=== PATIENT | female | born 1940 | race Caucasian/White ===

== ENCOUNTER 2016-06-19 10:31 | Outpatient (CLI) | payer OTHER, MEDICARE | END 2016-06-19 10:32 | disposition home or self-care (01) | DX: M25.512 Pain in left shoulder (principal) ==

== ENCOUNTER 2017-06-01 16:30 | Outpatient (CLI) | payer MEDICARE, OTHER ==
--- NOTE | 2017-06-03 15:08 | MRI Report ---
EXAM: LEFT SHOULDER MRI WITHOUT CONTRAST EXAM DATE: 06/01/2017 04:43 PM. CLINICAL HISTORY: Left shoulder pain and limited range of motion for years. COMPARISON: None. TECHNIQUE: Multiplanar, multisequence T1-weighted and fluid-sensitive sequences of the shoulder witho ut contrast. Other: None. FINDINGS: Acromioclavicular Region: The acromion is type I. The acromioclavicular joint is unremarkable. The co racoacromial and coracoclavicular ligaments are intact. Trace amount of fluid at the subacromial/subd eltoid bursa. Glenohumeral Region: No subluxation. No effusion or loose bodies. The articular cartilage is unremark able. The glenohumeral ligaments and joint capsule are unremarkable. Bone Marrow: No fracture, marrow edema or bone lesions. Labrum: The labrum is unremarkable on this nonarthrographic study. Musculature/Rotator Cuff: Mild supraspinatus tendinosis. Infraspinatus, teres minor, and subscapulari s tendons are unremarkable. No rotator cuff tear. No edema or fatty atrophy. Biceps Tendon: The long head of the biceps tendon and biceps hayden are intact. Other: The subcutaneous tissues are unremarkable. IMPRESSION: 1. Mild supraspinatus tendinosis. No rotator cuff tear. 2. Trace amount of fluid at the subacromial/subdeltoid bursa. [facility] MUSCULOSKELETAL RADIOLOGY SECTION Referring Provider Line: [phone] SITE ID: [id number]
== END 2017-06-01 16:31 | disposition home or self-care (01) ==
LOC: DI 16:30
PROVIDERS: ATTEND Registered Nurse
DX: M25.512 Pain in left shoulder (principal); R29.898 Other symptoms and signs involving the musculoskeletal system

== ENCOUNTER 2017-09-12 13:20 | Outpatient (CLI) | payer MEDICARE, OTHER ==
--- NOTE | 2017-09-16 16:11 | DEXA Report ---
DEXA: 09/12/2017 CLINICAL INDICATION: Postmenopausal. TECHNIQUE: Dual energy x-ray absorptiometry (DXA) was performed on a [employer] system. Regions measured are the AP spine, femoral neck, and, if needed, forearm. COMPARISON: None. In accordance with the International Society for Clinical Densitometry (ISCD) guidelines, data from previous exams may be reanalyzed using current recommendations and techniques. This is done to allow a more accurate basis for comparison with the current study. FINDINGS Data for the lumbar spine is as follows: REGION BMD (g/cm/cm) T-SCORE Z-SCORE L1 0.798 -2.8 -1.4 L2 0.774 -3.6 -2.2 L3 0.918 -2.4 -0.9 L4 0.865 -2.8 -1.4 L1-L4 0.843 -2.8 -1.4 NOTE: All evaluable vertebrae are used for classification. Data for the hip is as follows: REGION BMD (g/cm/cm) T-SCORE Z-SCORE Neck 0.858 -1.3 0.4 TOTAL 0.885 -1.0 0.6 NOTE: The femoral neck or total proximal femur, whichever is lowest, is used for classification. IMPRESSION WHO CLASSIFICATION BASED ON THE INTERNATIONAL REFERENCE STANDARD IS OSTEOPOROSIS. FRACTURE RISK IS HIGH. RECOMMENDATION: Patients with diagnosis of osteoporosis or osteopenia should have regular bone mineral density assessment. For those eligible for Medicare, routine testing is allowed once every 2 years. Testing frequency can be increased for patients who have rapidly progressing disease or for those who are receiving medical therapy to restore bone mass. COMMENT: World Health Organization (WHO) definitions for osteoporosis and osteopenia: NORMAL BMD: T-score at 1.0 or higher, fracture risk is low. OSTEOPENIA BMD: T-score between 1.0 and -2.5, fracture risk is increased. OSTEOPOROSIS BMD: T-score at 2.5 or lower, fracture risk high. National Osteoporosis Foundation recommends: 1. Obtain adequate dietary calcium (at least 1200 mg per day) and vitamin D (400 -800 international units per day). 2. Participate, as appropriate, in regular weightbearing and muscle- strengthening exercise. 3. Avoid tobacco use and reduce alcohol and caffeine intake. 4. For more detailed information see the website at www.NOF.org. TD: 09/12/2017 17:15 MTDD
== END 2017-09-12 13:21 | disposition home or self-care (01) ==
LOC: DI 13:20
PROVIDERS: ATTEND Registered Nurse
DX: Z13.820 Encounter for screening for osteoporosis (principal); M85.89 Other specified disorders of bone density and structure, multiple sites; N95.8 Other specified menopausal and perimenopausal disorders; R06.2 Wheezing; J40 Bronchitis, not specified as acute or chronic
CPT/HCPCS: 71046; 77080

== ENCOUNTER 2017-09-12 13:21 | Outpatient (CLI) | payer MEDICARE, OTHER ==
--- NOTE | 2017-09-12 17:13 | XRAY Report ---
TWO VIEW CHEST: 09/12/2017 CLINICAL INDICATION: Bronchitis, wheezing. FINDINGS: Frontal and lateral views of the chest demonstrate a normal cardiac silhouette. The lungs are hyperinflated, but clear. Postoperative changes are seen in the left axilla. No focal consolidation, effusion, or pneumothorax is present. IMPRESSION: HYPERINFLATION, SUGGESTIVE OF COPD. NO EVIDENCE OF ACUTE CARDIOPULMONARY DISEASE. TD: 09/12/2017 17:12
== END 2017-09-12 13:22 | disposition home or self-care (01) ==
LOC: DI 13:21
PROVIDERS: ATTEND Nurse Practitioner Family
DX: J40 Bronchitis, not specified as acute or chronic (principal); R06.2 Wheezing
CPT/HCPCS: 71046

== ENCOUNTER 2017-09-12 13:21 | Outpatient (CLI) | payer MEDICARE, OTHER ==
--- NOTE | 2017-09-13 14:03 | Mammography Report ---
DIGITAL SCREENING MAMMOGRAM: 09/12/2017 CLINICAL INDICATION: A 77-year-old with history of left breast cancer, status post lumpectomy and chemoradiation, for screening. COMPARISON: 12/2010, 11/2008. TECHNIQUE: Routine CC and MLO projections were obtained of the breasts. FINDINGS: The breasts again demonstrate scattered fibroglandular densities bilaterally. Postoperative and posttreatment changes in the left breast are stable. No suspicious masses, clustered microcalcifications, or regions of architectural distortion are identified. Punctate, typically benign calcifications are present. IMPRESSION: BENIGN FINDINGS. RECOMMENDATION: Routine annual screening unless otherwise clinically indicated. BIRADS CATEGORY 2 BENIGN FINDINGS. STANDARD QUALIFYING STATEMENTS: 1. This examination was reviewed with the aid of Computer-Aided Detection (CAD). 2. A negative or benign imaging report should not delay biopsy if clinically suspicious findings are present. Consider surgical consultation if warranted. More than 5% of cancers are not identified by imaging. 3. Dense breasts may obscure an underlying neoplasm. TD: 09/13/2017 14:02
== END 2017-09-12 13:22 | disposition home or self-care (01) ==
LOC: DI 13:21
PROVIDERS: ATTEND Registered Nurse
DX: Z12.31 Encounter for screening mammogram for malignant neoplasm of breast (principal); Z85.3 Personal history of malignant neoplasm of breast
CPT/HCPCS: 77067

== ENCOUNTER 2019-05-27 12:57 | Outpatient (CLI) | payer MEDICARE, OTHER ==
--- NOTE | 2019-05-28 06:38 | XRAY Report ---
Reason: PAIN OF LT ANKLE JOINT Procedure Date: 05/27/2019 Accession Number: [id number] / [id number] Procedure: XRS - Ankle 3 View LT CPT Code: Final Report FULL RESULT: EXAM: LEFT ANKLE RADIOGRAPHY EXAM DATE: 05/27/2019 01:15 PM. CLINICAL HISTORY: PAIN OF LT ANKLE JOINT. COMPARISON: FOOT 3 VIEW LT 05/27/2019 1:12 PM. TECHNIQUE: 3 views. FINDINGS: Bones: Small ossicle of uncertain age at the lateral aspect of the hindfoot, distal to the lateral malleolus. No other acute fracture seen. Joints: No dislocation seen. Ankle mortise appears intact. No joint effusion identified. Soft Tissues: Mild soft tissue swelling. IMPRESSION: 1. Ossicle of uncertain age distal to the tip of the lateral malleolus, seen on the mortise view. This could be a small avulsion from the lateral aspect of the talus or calcaneus. [facility]
--- NOTE | 2019-05-28 06:40 | XRAY Report ---
Reason: PAIN OF LT ANKLE JOINT Procedure Date: 05/27/2019 Accession Number: [id number] / [id number] Procedure: XRS - Foot 3 View LT CPT Code: Final Report FULL RESULT: EXAM: LEFT FOOT RADIOGRAPHY EXAM DATE: 05/27/2019 01:15 PM. CLINICAL HISTORY: Pain after injury. COMPARISON: None. TECHNIQUE: 3 views. FINDINGS: Bones: Bunion deformity. No acute fracture seen. Joints: No dislocation seen. Mild degenerative joint disease in the first MTP joint and in the interphalangeal joints. Soft Tissues: Mild soft tissue swelling. IMPRESSION: 1. No acute fracture or dislocation seen. 2. Bunion deformity and mild degenerative changes. [facility]
== END 2019-05-27 12:58 | disposition home or self-care (01) ==
LOC: DI.S 12:57
PROVIDERS: ATTEND Registered Nurse
DX: M21.612 Bunion of left foot (principal); M19.072 Primary osteoarthritis, left ankle and foot; M85.872 Other specified disorders of bone density and structure, left ankle and foot

== ENCOUNTER 2019-10-30 11:08 | Outpatient (CLI) | payer MEDICARE, OTHER ==
--- NOTE | 2019-11-03 09:43 | Mammography Report ---
BILATERAL DIGITAL SCREENING MAMMOGRAM 3D/2D: 10/30/2019 CLINICAL: Routine screening. Personal history of left breast cancer. Comparison is made to exams dated: 09/12/2017 mammogram, 12/19/2010 mammogram, and 11/24/2008 mammogram - [facility]. The tissue of both breasts is heterogeneously dense. This may lower t he sensitivity of mammography. There are benign vascular calcifications in both breasts. There also are benign post operative findi ngs in the left breast. No significant masses, calcifications, or other findings are seen in either breast. There has been no significant interval change. IMPRESSION: There is no mammographic evidence of malignancy. A 1 year screening mammogram is recommended. This exam was interpreted at Station ID: [id number]. NOTE: For mammograms, a report in lay terms will be sent to the patient. Approximately 15% of breast malignancies will not be visualized mammographically. In the management of a palpable breast mass, a negative mammogram must not discourage biopsy of a clinically suspicious lesion. Electronically Signed By: Juanito shaffer/haja:11/02/2019 16:08:41 ACR BI-RADS Category 2: Benign Finding(s) 3342F PARENCHYMAL PATTERN: (D) - The breast(s) demonstrate(s) heterogeneously dense fibroglandular jasson larsen. BI-RADS CATEGORY: (2) - 2 RECOMMENDATION: (ANNUAL) - Recommend routine annual screening mammography. [id number] 1 year screening LATERALITY: (B)
== END 2019-10-30 11:09 | disposition home or self-care (01) ==
LOC: DI 11:08
PROVIDERS: ATTEND Physician Assistant
DX: Z12.31 Encounter for screening mammogram for malignant neoplasm of breast (principal); Z85.3 Personal history of malignant neoplasm of breast
CPT/HCPCS: 77063; 77067

== ENCOUNTER 2020-08-25 22:03 | Outpatient (CLI) | payer MEDICARE, OTHER | END 2020-08-25 22:04 | disposition critical access hospital (66) | LOC: EMS 22:03 | DX: R06.02 Shortness of breath (principal); M62.830 Muscle spasm of back | CPT/HCPCS: A0425; A0427 ==

== ENCOUNTER 2020-08-25 22:43 | Inpatient (IN) | payer MEDICARE, OTHER ==
[2020-08-25] MEDS ORDERED: SODIUM CHLORIDE 0.9% 2,218.08 ML IV STA (23:19)
[2020-08-25] MEDS ORDERED: ACETAMINOPHEN 500 MG TABLET PO STA (23:20)
--- NOTE | 2020-08-25 23:23 | ED Physician Documentation ---
History of Present Illness - Stated complaint Stated Complaint: SOA/BACK PAIN - Chief complaint Chief Complaint: Fever - History obtained from History obtained from: Patient, EMS - Additonal information Additional information: Patient is brought to the emergency department by EMS for chief complaint of shortness of breath, fever, myalgias, and generally not feeling well. Patient is not able to give an entirely clear history, due to having received 200 mcg of fentanyl in route by EMS. EMS reports a wrist surgery that was done "in August" but this does not appear likely, given the lack of fresh scars/incisions on the patient's upper extremities. The patient is not sure when her wrist surgery was. She states she has been coughing a little and has a history of asthma, but has not had to use her inhalers more than usual recently. She denies dysuria. She has not measured temperature at home, though she was found to be febrile in route and upon arrival here. Patient denies any nausea or vomiting. She has a history of lymphedema in her left arm since breast cancer treatment, And does not think this is any worse than usual. She reports that she normally has some redness of her arm and chest, though once again the accuracy of this history is not clear, secondary to some confusion that has resulted since the patient receiving fentanyl. Patient denies any other specific complaints at this time. Review of Systems Ten Systems: 10 systems reviewed and negative Constitutional: reports: Fever, Chills, Myalgias, Fatigue Eyes: reports: Reviewed and negative Ears: reports: Reviewed and negative Nose: reports: Reviewed and negative Throat: reports: Reviewed and negative Cardiac: reports: Reviewed and negative Respiratory: reports: Dyspnea, Cough (mild) GI: reports: Reviewed and negative. denies: Nausea, Vomiting : reports: Reviewed and negative. denies: Dysuria Skin: reports: Reviewed and negative Musculoskeletal: reports: Reviewed and negative Neurologic: reports: Reviewed and negative Psychiatric: reports: Reviewed and negative Endocrine: reports: Reviewed and negative Immunocompromised: reports: Reviewed and negative PD PAST MEDICAL HISTORY - Past Medical History Cardiovascular: High cholesterol GI: GERD Psych: Depression Musculoskeletal: Osteoarthritis, Other - Past Surgical History Past Surgical History: Yes General: Hiatal hernia repair Ortho: Hip replacement - Present Medications Home Medications: Ambulatory Orders Medication Instructions Recorded Confirmed Albuterol [Ventolin Hfa] 2 puffs INH Q4H PRN #1 inhaler 03/03/13 08/25/20 Carbidopa/Levodopa 25/100 [Sinemet 1 each PO QID PRN 03/03/13 08/25/20 25 mg/100 mg] Citalopram [CeleXA] 40 mg PO DAILY 03/03/13 08/25/20 Gabapentin [Neurontin] 100 mg PO BID 03/03/13 08/25/20 HYDROcodone/ACET 10/325 [Millen 10 1 each PO Q4-6H PRN 03/03/13 08/25/20 mg/325 mg] Lovastatin [Altoprev] 20 mg PO DAILY 03/03/13 03/03/13 Omeprazole [PriLOSEC] 20 mg PO DAILY 03/03/13 08/25/20 Ropinirole HCl 1 mg PO TID 03/03/13 08/25/20 predniSONE [Deltasone] 40 mg PO DAILY 5 Days tablet 03/03/13 Azithromycin [Zithromax] 250 mg PO DAILY #6 tablet 12/25/14 guaiFENesin/CODEINE [Robitussin AC] 10 ml PO Q6H PRN 08/25/20 - Allergies Allergies/Adverse Reactions: Allergies Allergy/AdvReac Type Severity Reaction Status Date / Time Penicillins Allergy Mild itchng Verified 08/25/20 23:07 - Social History Does the pt smoke?: No Smoking Status: Never smoker Does the pt drink ETOH?: Yes Does the pt have substance abuse?: No - Immunizations Immunizations are current?: Yes PD ED PE NORMAL - Vitals Vital signs reviewed: Yes - General General: Alert and oriented X 3, Well developed/nourished, Other (The patient is somewhat agitated and confused, shaking her legs vigorously and speaking in partially completed sentences.) - HEENT HEENT: Atraumatic, PERRL, EOMI, Moist mucous membranes - Neck Neck: Supple, no meningeal sign - Cardiac Cardiac: RRR, No murmur, Strong equal pulses - Respiratory Respiratory: No respiratory distress, Clear bilaterally - Abdomen Abdomen: Soft, Non tender, Non distended - Back Back: No CVA TTP - Derm Derm: Normal color, Warm and dry, No rash - Extremities Extremities: No deformity, No edema, No calf tenderness / cord - Neuro Neuro: picture hanger 2-12 intact, No motor deficit, No sensory deficit, Normal speech, Other (Patient is alert and able to answer questions about how she is feeling, but is confused as to the details around her coming here.) - Psych Psych: Normal mood, Normal affect Results - Vitals Vitals: Vital Signs - 24 hr 08/25/20 08/25/20 08/25/20 23:07 23:14 23:32 Temperature 38.8 C H 38.8 C H 37.7 C Heart Rate 111 H 113 H 111 H Heart Rate [ Sitting] Heart Rate [ Standing] Heart Rate [ Supine] Respiratory 17 17 15 Rate Blood Pressure 104/52 L 104/52 L 112/72 Blood Pressure [Sitting] Blood Pressure [Standing] Blood Pressure [Supine] O2 Saturation 92 93 92 08/25/20 08/26/20 08/26/20 23:44 00:14 00:30 Temperature 37.6 C 102.9 C H 39.4 C H Heart Rate 88 115 H 112 H Heart Rate [ Sitting] Heart Rate [ Standing] Heart Rate [ Supine] Respiratory 16 23 20 Rate Blood Pressure 116/98 H 97/53 L 99/54 L Blood Pressure [Sitting] Blood Pressure [Standing] Blood Pressure [Supine] O2 Saturation 98 92 94 08/26/20 08/26/20 08/26/20 01:00 01:04 01:30 Temperature 39.3 C H 39.3 C H Heart Rate 112 H 110 H 109 H Heart Rate [ Sitting] Heart Rate [ Standing] Heart Rate [ Supine] Respiratory 20 18 15 Rate Blood Pressure 97/53 L 124/63 99/67 Blood Pressure [Sitting] Blood Pressure [Standing] Blood Pressure [Supine] O2 Saturation 94 94 95 08/26/20 08/26/20 02:00 02:10 Temperature 37.2 C Heart Rate 115 H Heart Rate [ 115 H Sitting] Heart Rate [ 120 H Standing] Heart Rate [ 108 H Supine] Respiratory 25 H Rate Blood Pressure Blood Pressure 101/69 [Sitting] Blood Pressure 112/51 L [Standing] Blood Pressure 97/67 [Supine] O2 Saturation 94 Oxygen O2 Source Nasal cannula - Labs Labs: Laboratory Tests 08/25/20 08/25/20 08/25/20 23:35 23:35 23:40 WBC 16.5 H RBC 3.95 L Hgb 11.0 L Hct 35.2 L MCV 89.1 MCH 27.8 MCHC 31.3 L RDW 14.4 Plt Count 228 MPV 10.2 Neut # (Auto) 15.4 H Lymph # (Auto) 0.8 L [place] # (Auto) 0.2 Eos # (Auto) 0.0 Baso # (Auto) 0.0 Absolute Nucleated RBC 0.00 Nucleated RBC % 0.0 Sodium 138 Potassium 4.0 Chloride 105 Carbon Dioxide 24 Anion Gap 9.0 BUN 15 Creatinine 0.8 Estimated GFR (MDRD) 69 L Glucose 120 H Lactic Acid 1.4 Calcium 8.8 Total Bilirubin 0.3 AST 20 ALT 16 Alkaline Phosphatase 61 Total Protein 6.4 L Albumin 3.8 Globulin 2.6 Albumin/Globulin Ratio 1.5 Urine Color Urine Clarity Urine pH Ur Specific [place] Urine Protein Urine Glucose (UA) Urine Ketones Urine Occult Blood Urine Nitrite Urine Bilirubin Urine Urobilinogen Ur Leukocyte Esterase Urine RBC Urine WBC Ur Squamous Epith Cells Urine Bacteria Urine Culture Comments Nasal Adenovirus (PCR) Nasal B. parapertussis DNA (PCR) Nasal Coronavir 229E PCR Nasal Coronavir HKU1 PCR Nasal Coronavir NL63 PCR Nasal Coronavir OC43 PCR Nasal Enterovir/Rhinovir PCR Nasal Influenza B PCR Nasal Influenza A PCR Nasal Parainfluen 1 PCR Nasal Parainfluen 2 PCR Nasal Parainfluen 3 PCR Nasal Parainfluen 4 PCR Nasal RSV (PCR) Nasal B.pertussis DNA PCR Nasal C.pneumoniae (PCR) Esteban Human Metapneumo PCR Nasal M.pneumoniae (PCR) Nasal SARS-CoV-2 (PCR) 08/26/20 08/26/20 00:31 00:38 WBC RBC Hgb Hct MCV MCH MCHC RDW Plt Count MPV Neut # (Auto) Lymph # (Auto) [place] # (Auto) Eos # (Auto) Baso # (Auto) Absolute Nucleated RBC Nucleated RBC % Sodium Potassium Chloride Carbon Dioxide Anion Gap BUN Creatinine Estimated GFR (MDRD) Glucose Lactic Acid Calcium Total Bilirubin AST ALT Alkaline Phosphatase Total Protein Albumin Globulin Albumin/Globulin Ratio Urine Color YELLOW Urine Clarity CLEAR Urine pH 6.5 Ur Specific [place] 1.015 Urine Protein NEGATIVE Urine Glucose (UA) NEGATIVE Urine Ketones NEGATIVE Urine Occult Blood TRACE-INTA Urine Nitrite NEGATIVE Urine Bilirubin NEGATIVE Urine Urobilinogen 0.2 (NORMAL) Ur Leukocyte Esterase NEGATIVE Urine RBC 0-5 Urine WBC 0-3 Ur Squamous Epith Cells RARE Squamous Urine Bacteria Rare Urine Culture Comments NOT INDICATED Nasal Adenovirus (PCR) NOT DETECTED Nasal B. parapertussis DNA (PCR) NOT DETECTED Nasal Coronavir 229E PCR NOT DETECTED Nasal Coronavir HKU1 PCR NOT DETECTED Nasal Coronavir NL63 PCR NOT DETECTED Nasal Coronavir OC43 PCR NOT DETECTED Nasal Enterovir/Rhinovir PCR NOT DETECTED Nasal Influenza B PCR NOT DETECTED Nasal Influenza A PCR NOT DETECTED Nasal Parainfluen 1 PCR NOT DETECTED Nasal Parainfluen 2 PCR NOT DETECTED Nasal Parainfluen 3 PCR NOT DETECTED Nasal Parainfluen 4 PCR NOT DETECTED Nasal RSV (PCR) NOT DETECTED Nasal B.pertussis DNA PCR NOT DETECTED Nasal C.pneumoniae (PCR) NOT DETECTED Esteban Human Metapneumo PCR NOT DETECTED Nasal M.pneumoniae (PCR) NOT DETECTED Nasal SARS-CoV-2 (PCR) NOT DETECTED - Rads (name of study) CXR Radiology: Final report received, EMP read indepedently, See rad report (LLL infiltrate) PD MEDICAL DECISION MAKING - ED course Complexity details: reviewed old records, reviewed results, re-evaluated patient, considered differential, d/w patient ED course: The patient was treated with a gram of Tylenol and 2 L of IV fluid in the emergency department. On reevaluation her fever and her heart rate were the same as upon arrival. Patient's laboratory studies showed moderate white blood cell count elevation and a normal lactate. Urinalysis was negative. Chest x- ray demonstrated left lower lobe pneumonia. Patient was started on Rocephin and Zithromax IV. I spoke with Dr. Toney, who agreed to move the patient to her service. Departure - Departure Disposition: 66 [facility] DC/Xfer Clinical Impression: Hypoxia Pneumonia Qualifiers: Pneumonia type: due to unspecified organism Laterality: left Lung location: lower lobe of lung Qualified Code(s): J18.9 - Pneumonia, unspecified organism Hypotension Qualifiers: Hypotension type: unspecified hypotension type Qualified Code(s): I95.9 - Hypotension, unspecified Condition: Serious Discharge Date/Time: 08/26/20 03:31
[2020-08-25 23:51] LABS: BASOPHILS % (AUTO) 0.2 %; EOSINOPHILS % (AUTO) 0.1 %; HCT - HEMATOCRIT 35.2 % (37.0-47.0); LYMPHOCYTES # (AUTO) 0.8 10^3/uL (1.5-3.5); LYMPHOCYTES % (AUTO) 4.6 %; MEAN CORPUSCULAR HEMOGLOBIN 27.8 pg (27.0-31.0); MEAN CORPUSCULAR HGB CONC 31.3 g/dL (32.0-36.0); MEAN CORPUSCULAR VOLUME 89.1 fL (81.0-99.0); MEAN PLATELET VOLUME 10.2 fL (7.9-10.8); MONOCYTES # (AUTO) 0.2 10^3/uL (0.0-1.0); MONOCYTES % (AUTO) 1.4 %; NEUTROPHILS # (AUTO) 15.4 10^3/uL (1.5-6.6); NEUTROPHILS % (AUTO) 93.3 %; PLT - PLATELET COUNT 228 10^3/uL (130-450); RED BLOOD COUNT 3.95 10^6/uL (4.20-5.40); RED CELL DISTRIBUTION WIDTH 14.4 % (12.0-15.0); WHITE BLOOD COUNT 16.5 x10^3/uL (4.8-10.8)
[2020-08-26 00:06] LABS: ALBUMIN 3.8 g/dL (3.2-5.5); ALBUMIN/GLOBULIN RATIO 1.5 (1.0-2.2); BILIRUBIN,TOTAL 0.3 mg/dL (0.2-1.0); CALCIUM 8.8 mg/dL (8.5-10.3); CREATININE 0.8 mg/dL (0.4-1.0); TOTAL PROTEIN 6.4 g/dL (6.7-8.2)
[2020-08-26 00:35] LABS: BILIRUBIN,URINE NEGATIVE (NEGATIVE); GLUCOSE, URINE (UA) NEGATIVE (NEGATIVE); KETONES,URINE (UA) NEGATIVE (NEGATIVE); LEUKOCYTE ESTERASE, URINE NEGATIVE (NEGATIVE); NITRITE,URINE NEGATIVE (NEGATIVE); OCCULT BLOOD,URINE TRACE-INTA (NEGATIVE); PH,URINE 6.5 PH (5.0-7.5); PROTEIN,URINE NEGATIVE (NEGATIVE); UROBILINOGEN,URINE 0.2 (NORMAL) E.U./dL (NORMAL)
[2020-08-26] MEDS ORDERED: AZITHROMYCIN INJ 500 MG in SODIUM CHLORIDE 0.9% 250 ML IV STA (00:38)
[2020-08-26] MEDS ORDERED: cefTRIAXone 2 GM in SODIUM CHLORIDE 0.9% MINIBAG 100 ML IV STA (00:38)
[2020-08-26] MEDS ORDERED: cefTRIAXone 2 GM VIAL ONE (00:40)
[2020-08-26 00:41] LABS: BACTERIA,URINE Rare /HPF (None Seen); CLARITY,URINE CLEAR (CLEAR); RBC,URINE 0-5 /HPF (0-5); SQUAMOUS EPITHELIAL CELL,UR RARE Squamous (<= Few); WBC,URINE 0-3 /HPF (0-5)
[2020-08-26 01:38] LABS: B. PARAPERTUSSIS- RESP PCR PAN NOT DETECTED; B. PERTUSSIS- RESP PCR PANEL NOT DETECTED; C. PNEUMONIAE- RESP PCR PANEL NOT DETECTED; CORONAVIRUS 229E-RESP PCR NOT DETECTED; CORONAVIRUS HKU1-RESP PCR NOT DETECTED; CORONAVIRUS NL63-RESP PCR NOT DETECTED; CORONAVIRUS OC43-RESP PCR NOT DETECTED; HUMAN METAPNEUMOVIRUS NOT DETECTED; INFLUENZA A- RESP PCR PANEL NOT DETECTED; INFLUENZA B - RESP PCR PANEL NOT DETECTED; M. PNEUMONIAE- RESP PCR PANEL NOT DETECTED; PARAINFLUENZA VIRUS 1 NOT DETECTED; PARAINFLUENZA VIRUS 2 NOT DETECTED; PARAINFLUENZA VIRUS 3 NOT DETECTED; PARAINFLUENZA VIRUS 4 NOT DETECTED; RHINOVIRUS/ENTEROVIRUS NOT DETECTED; RSV- RESP PCR PANEL NOT DETECTED; SARS-CoV-2 -RESP PCR PANEL NOT DETECTED
[2020-08-26] MEDS ORDERED: KETOROLAC 30 MG/ML VIAL IVP STA (01:48)
[2020-08-26] MEDS ORDERED: SODIUM CHLORIDE FLUSH 0.9% 10 ML SYRINGE IVP PRN (02:27)
[2020-08-26] MEDS ORDERED: ONDANSETRON 4 MG/2 ML VIAL IVP PRN (02:27)
[2020-08-26] MEDS ORDERED: LEVALBUTEROL 1.25 MG/3 ML NEB INH PRN (02:32)
--- NOTE | 2020-08-26 02:44 | HISTORY & PHYSICAL EXAMINATION ---
DATE OF SERVICE: 08/26/2020 Physician: Juliet Toney MD HISTORY OF PRESENT ILLNESS: This is a 80-year-old white female with a history of remote breast cancer with prior treatment which left her with left arm swelling, restless leg syndrome, asthma for which she takes inhalers and history of depression on treatment. 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 Family members came over to visit them today and found her to be confused, which she normally is not, and also appeared short of breath. The patient had been taking Robitussin for a cough. An ambulance was summoned and she was found to have an oxygen saturation of 89% on room air and also hypotensive with vital signs in the ER systolic of 97 and heart rate of 115 in sinus rhythm. She is also febrile with a temperature of 39.4 Centigrade. The patient was given fentanyl en route by the ambulance and is confused here as well. We do not know her baseline, however, or what the family found her doing. The patient states that she cannot remember having a cough. She talks about having wrist surgery this month, but she has no scar there. She is oriented to self, but not place or time. The workup in the ER found that she has left-sided consolidation on CXR and the patient is being admitted for community-acquired pneumonia with hemodynamic instability and altered mental status. PAST MEDICAL HISTORY: Breast cancer with prior treatment, now has left arm edema chronically, history of asthma, history of depression, restless leg syndrome. ALLERGIES: PENICILLINS. MEDICATIONS: Robitussin recently. In the past she has been on: 1. Lovastatin. 2. [place]. 3. Gabapentin. 4. Celexa 5. Ventolin inhaler p.r.n. 6. Requip 7. Sinemet Unknown if she is currently on prednisone. This is probably an incomplete list. FAMILY HISTORY: No inherited diseases. SOCIAL HISTORY: The patient is a nonsmoker, drinks alcohol, but frequency is not known. No illicit drug use history. She lives with her and she is the caregiver for him because he has dementia. REVIEW OF SYSTEMS: Done from the brief answers given to me by the patient and from chart review and from summary by the ER doctor. The pertinent positives are listed, the rest are negative on a comprehensive review. PHYSICAL EXAMINATION GENERAL: Elderly white female. She is in mild respiratory distress and confused, pulling at her IV line. VITAL SIGNS: Blood pressure right now 99/67, heart rate 109 in sinus rhythm, temperature 39.3 Centigrade, respiratory rate 15-20, O2 saturation was 89% on room air at the scene and now is 92-98% on 2 liters nasal cannula. HEENT: Reveals dry oral mucosa and good dentition. NECK: No JVD. CHEST: Diminished breath sounds at the left side. No rales or rhonchi. HEART: Tachycardic without murmurs. ABDOMEN: Soft, nontender. No organomegaly. EXTREMITIES: No clubbing, cyanosis, edema. NEUROLOGIC: Confused, oriented to self only. Nonfocal motor exam. Lower legs are in constant motion. LABORATORY DATA: White count 16.5 with a left shift, hemoglobin 11, platelet count 228. No INR was done. Normal electrolytes. Normal BUN of 15 and creatinine 0.8. Normal lactic acid of 1.4. Normal liver tests. Urinalysis unremarkable. Respiratory panel was negative for COVID and other isolates. IMAGING: Chest x-ray: Left lower lobe consolidation. IMPRESSION/DIAGNOSES 1. Sepsis with abnormal vital signs, increased white blood count and a pneumonia. 2. Hemodynamic instability, despite getting fluids for the last 2 hours. 3. Community-acquired pneumonia with a calculated PSI (pneumonia severity index) of class V, which is moderate to severe. 4. Acute respiratory failure with hypoxia. 5. Altered mental status. 6. Anemia. 7. Depression. 8. History of asthma. 9. History of breast cancer. 10. Restless leg syndrome. PLAN: Admit the patient on telemetry to Inpatient status. Continue with supplemental oxygen and iv antibiotics, which were started in the ER using Ceftriaxone and Zithromax. Obtain a sputum sample if she makes sputum. Continue with IV hydration for aggressive resuscitation of her soft blood pressure. Xopenex for asthma and wheezing prn. Because of confusion, will need assistance for getting out of bed. Follow her white blood count, follow daily electrolytes. Await culture results. Resume her home meds when they are reconciled. DEEP VENOUS THROMBOSIS PROPHYLAXIS: SCDs. CODE STATUS: FULL CODE. ATTESTATION: Patient is expected to be discharged or transferred to another facility within 96 hours: Yes. cc: DEE [facility] TD: 08/26/2020 02:43 CHIOMA
--- OUTSIDE RECORDS SUMMARY | 2020-08-26 02:54 | EXTERNAL MEDICAL SUMMARY RPT | Continuity of Care Document ---
:1940 Demographics Phone Unavailable Preferred Language Unknown Marital Status Unknown Roman Catholic Affiliation Unknown Race Unknown Ethnic Group Unknown Author Organization [place] Address [address] [phone] Phone Social History date description facility [id number]
[2020-08-26] MEDS ORDERED: D5NS W/20 MEQ KCL 1,000 ML IV SCH ×2 (03:00→08:32)
[2020-08-26] MEDS: rOPINIRole 1 MG TABLET PO SCH ×3 (05:00→21:32)
[2020-08-26] MEDS ORDERED: rOPINIRole 1 MG TABLET PO SCH (05:00)
[2020-08-26 05:15] LABS: BASOPHILS # (AUTO) 0.1 10^3/uL (0.0-0.1); BASOPHILS % (AUTO) 0.3 %; EOSINOPHILS # (AUTO) 0.1 10^3/uL (0.0-0.7); EOSINOPHILS % (AUTO) 0.4 %; HCT - HEMATOCRIT 35.8 % (37.0-47.0); HGB - HEMOGLOBIN 10.9 g/dL (12.0-16.0); LYMPHOCYTES # (AUTO) 1.1 10^3/uL (1.5-3.5); LYMPHOCYTES % (AUTO) 5.6 %; MEAN CORPUSCULAR HEMOGLOBIN 27.3 pg (27.0-31.0); MEAN CORPUSCULAR HGB CONC 30.4 g/dL (32.0-36.0); MEAN CORPUSCULAR VOLUME 89.7 fL (81.0-99.0); MEAN PLATELET VOLUME 10.5 fL (7.9-10.8); MONOCYTES # (AUTO) 0.3 10^3/uL (0.0-1.0); MONOCYTES % (AUTO) 1.4 %; NEUTROPHILS # (AUTO) 18.2 10^3/uL (1.5-6.6); NEUTROPHILS % (AUTO) 91.5 %; PLT - PLATELET COUNT 222 10^3/uL (130-450); RED BLOOD COUNT 3.99 10^6/uL (4.20-5.40); RED CELL DISTRIBUTION WIDTH 14.6 % (12.0-15.0); WHITE BLOOD COUNT 19.9 x10^3/uL (4.8-10.8)
[2020-08-26] MEDS: ACETAMINOPHEN 325 MG TABLET PO PRN ×4 (05:21→23:58)
[2020-08-26 05:26] LABS: CALCIUM 8.6 mg/dL (8.5-10.3); CREATININE 0.8 mg/dL (0.4-1.0); POTASSIUM 3.8 mmol/L (3.5-5.0)
[2020-08-26] MEDS ORDERED: cefTRIAXone 2 GM in SODIUM CHLORIDE 0.9% MINIBAG 100 ML IV SCH (09:00)
[2020-08-26] MEDS ORDERED: AZITHROMYCIN 250 MG TABLET PO SCH (09:00)
--- NOTE | 2020-08-26 09:09 | XRAY Report ---
PROCEDURE: Chest 1 View X-Ray INDICATIONS: chest pain TECHNIQUE: One view of the chest was acquired. COMPARISON: 09/12/2017 FINDINGS: Surgical changes and devices: Surgical clips are again noted within the left axilla and upper abdomen . Lungs and pleura: There are asymmetric peripheral distinct opacities in the left lung. Mild pulmonar y vascular prominence is present likely representing mild edema. No pleural effusions or pneumothorax . Mediastinum: Mediastinal contours appear unchanged. Heart size is normal. Bones and chest wall: No suspicious bony lesions. Overlying soft tissues appear unremarkable. IMPRESSION: 1. Asymmetric indistinct peripheral opacities in the lateral left lung is nonspecific but suggestive of consolidation and pneumonia. 2. Pulmonary vascular prominence likely reflecting mild edema. Reviewed by: Paxton Moore MD on 08/26/2020 9:08 AM PDT Approved by: Paxton Moore MD on 08/26/2020 9:08 AM PDT Station ID: [id number]
[2020-08-26] MEDS: D5NS W/20 MEQ KCL 1,000 ML IV SCH ×2 (09:46→13:48)
[2020-08-26] MEDS: GABAPENTIN 100 MG CAPSULE PO SCH ×2 (10:51→21:38)
[2020-08-26] MEDS: SACCHAROMYCES BOULARDII 250 MG CAPSULE PO SCH ×2 (10:51→17:42)
[2020-08-26] MEDS: HYDROcod/ACETAM 10 MG/325 MG TABLET PO PRN ×3 (10:51→21:32)
[2020-08-26] MEDS: CARBIDOPA/LEVODOPA 25 MG/100 MG TABLET PO PRN ×2 (10:51→23:58)
--- NOTE | 2020-08-26 11:09 | PHARMACY PROGRESS NOTE ---
- Best Possible Medication History Admit Date and Time: 08/26/20 0227 Processed by: Pharmacy Medication History completed: Yes Secondary Source(s): Physician records, Insurance records As the person ultimately responsible for medication therapy, providers are able to order a medication from an existing home medication list in [facility] via the "Reconcile Routine" prior to Confirmation of that medication by other sales support worker. Such practice is discouraged except when the physician, in their clinical judgment, deems that a medical need exists for a medication without regard to previous use.
[2020-08-26] MEDS: SODIUM CHLORIDE FLUSH 0.9% 10 ML SYRINGE IVP SCH ×2 (13:52→17:48)
[2020-08-26] MEDS: AZITHROMYCIN INJ 500 MG in SODIUM CHLORIDE 0.9% 250 ML IV SCH (16:28)
[2020-08-26] MEDS: cefTRIAXone 2 GM in SODIUM CHLORIDE 0.9% MINIBAG 100 ML IV SCH (17:47)
[2020-08-26] MEDS: guaiFENesin 600 MG TABLET PO SCH (21:32)
[2020-08-27] MEDS: SODIUM CHLORIDE FLUSH 0.9% 10 ML SYRINGE IVP SCH ×3 (00:01→16:16)
[2020-08-27 05:18] LABS: BASOPHILS % (AUTO) 0.3 %; EOSINOPHILS % (AUTO) 0.5 %; HCT - HEMATOCRIT 34.3 % (37.0-47.0); HGB - HEMOGLOBIN 10.6 g/dL (12.0-16.0); LYMPHOCYTES # (AUTO) 1.4 10^3/uL (1.5-3.5); LYMPHOCYTES % (AUTO) 15.6 %; MEAN CORPUSCULAR HEMOGLOBIN 27.2 pg (27.0-31.0); MEAN CORPUSCULAR HGB CONC 30.9 g/dL (32.0-36.0); MEAN CORPUSCULAR VOLUME 87.9 fL (81.0-99.0); MEAN PLATELET VOLUME 10.2 fL (7.9-10.8); MONOCYTES # (AUTO) 0.2 10^3/uL (0.0-1.0); MONOCYTES % (AUTO) 2.7 %; NEUTROPHILS % (AUTO) 80.7 %; PLT - PLATELET COUNT 176 10^3/uL (130-450); RED CELL DISTRIBUTION WIDTH 15.1 % (12.0-15.0); WHITE BLOOD COUNT 8.7 x10^3/uL (4.8-10.8)
[2020-08-27] MEDS: rOPINIRole 1 MG TABLET PO SCH ×3 (06:24→22:07)
--- NOTE | 2020-08-27 07:56 | PROVIDER PROGRESS NOTE ---
Assessment/Plan - Problem List (1) Sepsis Assessment/Plan: 2/2 Pneumonia Improved/ Resolved At presentation SBP was 99, P 109, Temp 39.3C Patient was placed on Rocephin and azithromycin An received IV hydration with normal saline This resulted in improved vitals and mentation (2) Pneumonia Qualifiers: Pneumonia type: due to unspecified organism Laterality: left Lung location: lower lobe of lung Qualified Code(s): J18.9 - Pneumonia, unspecified organism Assessment/Plan: On rocephin and azithromycin(completed) Blood cultures are NGTD (3) Acute respiratory failure with hypoxia Assessment/Plan: Likely 2/2 pneumonia However due to persistent dyspnea Will check a 2D echo on 08/29/20 (4) Altered mental status Assessment/Plan: 2/2 Septic state Resolved (5) RLS (restless legs syndrome) Assessment/Plan: On ropinirole (6) Hx of breast cancer Assessment/Plan: Patient has chronic left upper extremity lymphedema as a result of treatment - Current Meds Current Meds: Current Medications Generic Name Dose Route Start Last Admin Trade Name Freq PRN Reason Stop Dose Admin Acetaminophen 650 mg 08/26/20 02:27 08/26/20 23:58 Acetaminophen 325 Mg Tablet PO 650 mg Q4HR PRN Administration Pain or Fever > 38C (100.4F) Hydrocodone Bitart/Acetaminophen 1 tab 08/26/20 10:20 08/26/20 21:32 Hydrocod/Acetam 10 Mg/325 Mg Tablet PO 1 tab Q4H PRN Administration PAIN Carbidopa/Levodopa 1 tab 08/26/20 10:20 08/26/20 23:58 Carbidopa/Levodopa 25 Mg/100 Mg Tablet PO 1 tab QID PRN Administration spasm Gabapentin 100 mg 08/26/20 10:20 08/26/20 21:38 Gabapentin 100 Mg Capsule PO Not Given BID IBIS Guaifenesin 600 mg 08/26/20 21:00 08/26/20 21:32 Guaifenesin 600 Mg Tablet PO 600 mg BID IBIS Administration Ceftriaxone Sodium 2 gm/ 100 mls @ 200 mls/hr 08/26/20 17:00 08/26/20 18:24 Sodium Chloride IV Infused DAILY IBIS Infusion Azithromycin 500 mg/ Sodium 250 mls @ 250 mls/hr 08/26/20 16:00 08/26/20 17:52 Chloride IV 08/27/20 09:59 Infused DAILY IBIS Infusion Ropinirole HCl 1 mg 08/26/20 05:00 08/27/20 06:24 Ropinirole 1 Mg Tablet PO 1 mg TID IBIS Administration Saccharomyces Boulardii 250 mg 08/26/20 10:24 08/26/20 17:42 Saccharomyces Boulardii 250 Mg Capsule PO 250 mg BIDWM IBIS Administration Sodium Chloride 10 ml 08/26/20 09:00 08/27/20 00:01 Sodium Chloride Flush 0.9% 10 Ml Syringe IVP Not Given 0100,0900,1700 IBIS - Lab Result Fish Bone Diagrams: 08/27/20 05:06 08/26/20 04:40 Subjective - Subjective Patient Reports: Other (Patient has some conversational dyspnea. Chronic lymphedema in left upper extremity. She denies chest pain, abd pain, n/v/d, f/c) Objective Vital Signs: Vital Signs - 24 hr 08/26/20 08/26/20 08/26/20 08:23 13:00 16:22 Temperature 36.9 C 36.7 C 38.1 C H Heart Rate [ 100 84 91 Brachial] Respiratory 18 18 18 Rate Blood Pressure 118/57 L 97/68 117/64 [Right Brachial artery] O2 Saturation 94 96 97 08/26/20 08/27/20 08/27/20 20:16 00:00 05:00 Temperature 37.4 C 37.7 C 36.9 C Heart Rate [ 75 93 75 Brachial] Respiratory 18 18 18 Rate Blood Pressure 123/53 L 150/61 H 128/78 [Right Brachial artery] O2 Saturation 95 93 96 Oxygen O2 Source Room air I&O (Last 24 Hrs): Intake and Output Totals x24h 08/25/20 08/26/20 08/27/20 23:59 23:59 23:59 Intake Total 6095.057 Output Total 600 Balance 5495.057 General: Alert, Oriented x3, Cooperative, Mild distress (respiratory) HEENT: PERRLA, EOMI Neck: Supple, No JVD Neuro: Alert, Non Focal, Oriented Times 3 Cardiovascular: Regular rate, Normal S1, Normal S2 Respiratory: Chest non-tender, Other (Coarse breath sounds. Mild conversational dyspnea) Abdomen: Normal bowel sounds, Soft, No tenderness Extremities: Other (chronic left upper extremity edema) Comments/Notes: rash on left upper extremity (chronic) - Results Results: Laboratory Results WBC 8.7 x10^3/uL (4.8-10.8) 08/27/20 05:06 RBC 3.90 10^6/uL (4.20-5.40) L 08/27/20 05:06 Hgb 10.6 g/dL (12.0-16.0) L 08/27/20 05:06 Hct 34.3 % (37.0-47.0) L 08/27/20 05:06 MCV 87.9 fL (81.0-99.0) 08/27/20 05:06 MCH 27.2 pg (27.0-31.0) 08/27/20 05:06 MCHC 30.9 g/dL (32.0-36.0) L 08/27/20 05:06 RDW 15.1 % (12.0-15.0) H 08/27/20 05:06 Plt Count 176 10^3/uL (130-450) 08/27/20 05:06 MPV 10.2 fL (7.9-10.8) 08/27/20 05:06 Neut # (Auto) 7.0 10^3/uL (1.5-6.6) H 08/27/20 05:06 Lymph # (Auto) 1.4 10^3/uL (1.5-3.5) L 08/27/20 05:06 [place] # (Auto) 0.2 10^3/uL (0.0-1.0) 08/27/20 05:06 Eos # (Auto) 0.0 10^3/uL (0.0-0.7) 08/27/20 05:06 Baso # (Auto) 0.0 10^3/uL (0.0-0.1) 08/27/20 05:06 Absolute Nucleated RBC 0.00 x10^3/uL 08/27/20 05:06 Nucleated RBC % 0.0 /100WBC 08/27/20 05:06 Sodium 140 mmol/L (135-145) 08/26/20 04:40 Potassium 3.8 mmol/L (3.5-5.0) 08/26/20 04:40 Chloride 107 mmol/L (101-111) 08/26/20 04:40 Carbon Dioxide 22 mmol/L (21-32) 08/26/20 04:40 Anion Gap 11.0 (6-13) 08/26/20 04:40 BUN 15 mg/dL (6-20) 08/26/20 04:40 Creatinine 0.8 mg/dL (0.4-1.0) 08/26/20 04:40 Estimated GFR (MDRD) 69 (>89) L 08/26/20 04:40 Glucose 123 mg/dL (70-100) H 08/26/20 04:40 Lactic Acid 1.4 mmol/L (0.5-2.2) 08/25/20 23:40 Calcium 8.6 mg/dL (8.5-10.3) 08/26/20 04:40 Total Bilirubin 0.3 mg/dL (0.2-1.0) 08/25/20 23:35 AST 20 IU/L (10-42) 08/25/20 23:35 ALT 16 IU/L (10-60) 08/25/20 23:35 Alkaline Phosphatase 61 IU/L (42-121) 08/25/20 23:35 C-Reactive Protein 19.7 mg/dL (0-1.0) H 08/27/20 05:06 Total Protein 6.4 g/dL (6.7-8.2) L 08/25/20 23:35 Albumin 3.8 g/dL (3.2-5.5) 08/25/20 23:35 Globulin 2.6 g/dL (2.1-4.2) 08/25/20 23:35 Albumin/Globulin Ratio 1.5 (1.0-2.2) 08/25/20 23:35 Urine Color YELLOW 08/26/20 00:31 Urine Clarity CLEAR (CLEAR) 08/26/20 00:31 Urine pH 6.5 PH (5.0-7.5) 08/26/20 00:31 Ur Specific Show Low 1.015 (1.002-1.030) 08/26/20 00:31 Urine Protein NEGATIVE mg/dL (NEGATIVE) 08/26/20 00:31 Urine Glucose (UA) NEGATIVE mg/dL (NEGATIVE) 08/26/20 00:31 Urine Ketones NEGATIVE mg/dL (NEGATIVE) 08/26/20 00:31 Urine Occult Blood TRACE-INTA (NEGATIVE) 08/26/20 00:31 Urine Nitrite NEGATIVE (NEGATIVE) 08/26/20 00:31 Urine Bilirubin NEGATIVE (NEGATIVE) 08/26/20 00:31 Urine Urobilinogen 0.2 (NORMAL) E.U./dL (NORMAL) 08/26/20 00:31 Ur Leukocyte Esterase NEGATIVE (NEGATIVE) 08/26/20 00:31 Urine RBC 0-5 /HPF (0-5) 08/26/20 00:31 Urine WBC 0-3 /HPF (0-5) 08/26/20 00:31 Ur Squamous Epith Cells RARE Squamous (<= Few) 08/26/20 00:31 Urine Bacteria Rare /HPF (None Seen) 08/26/20 00:31 Urine Culture Comments NOT INDICATED 04 00:31 Nasal Adenovirus (PCR) NOT DETECTED 04 00:38 Nasal B. parapertussis DNA (PCR) NOT DETECTED 08/26/20 00:38 Nasal Coronavir 229E PCR NOT DETECTED 08/26/20 00:38 Nasal Coronavir HKU1 PCR NOT DETECTED 04 00:38 Nasal Coronavir NL63 PCR NOT DETECTED 04 00:38 Nasal Coronavir OC43 PCR NOT DETECTED 08/26/20 00:38 Nasal Enterovir/Rhinovir PCR NOT DETECTED 08/26/20 00:38 Nasal Influenza B PCR NOT DETECTED 04 00:38 Nasal Influenza A PCR NOT DETECTED 08/26/20 00:38 Nasal Parainfluen 1 PCR NOT DETECTED 08/26/20 00:38 Nasal Parainfluen 2 PCR NOT DETECTED 08/26/20 00:38 Nasal Parainfluen 3 PCR NOT DETECTED 08/26/20 00:38 Nasal Parainfluen 4 PCR NOT DETECTED 08/26/20 00:38 Nasal RSV (PCR) NOT DETECTED 08/26/20 00:38 Nasal B.pertussis DNA PCR NOT DETECTED 08/26/20 00:38 Nasal C.pneumoniae (PCR) NOT DETECTED 04 00:38 Esteban Human Metapneumo PCR NOT DETECTED 04 00:38 Nasal M.pneumoniae (PCR) NOT DETECTED 04 00:38 Nasal SARS-CoV-2 (PCR) NOT DETECTED 04 00:38 ABX Reporting Has patient been on IV antibiotics over the past 48 hours?: Yes
[2020-08-27] MEDS: GABAPENTIN 100 MG CAPSULE PO SCH ×2 (08:50→22:08)
[2020-08-27] MEDS: SACCHAROMYCES BOULARDII 250 MG CAPSULE PO SCH ×2 (08:50→16:56)
[2020-08-27] MEDS: guaiFENesin 600 MG TABLET PO SCH ×2 (08:50→22:08)
[2020-08-27] MEDS: cefTRIAXone 2 GM in SODIUM CHLORIDE 0.9% MINIBAG 100 ML IV SCH (08:58)
[2020-08-27] MEDS ORDERED: CITALOPRAM 10 MG TABLET PO SCH (09:00)
[2020-08-27] MEDS: AZITHROMYCIN INJ 500 MG in SODIUM CHLORIDE 0.9% 250 ML IV SCH (10:14)
[2020-08-27] MEDS: HYDROcod/ACETAM 10 MG/325 MG TABLET PO PRN ×2 (14:43→22:12)
[2020-08-28] MEDS: SODIUM CHLORIDE FLUSH 0.9% 10 ML SYRINGE IVP SCH ×3 (00:30→16:17)
[2020-08-28 05:21] LABS: BASOPHILS % (AUTO) 0.4 %; EOSINOPHILS # (AUTO) 0.1 10^3/uL (0.0-0.7); EOSINOPHILS % (AUTO) 1.6 %; HGB - HEMOGLOBIN 11.1 g/dL (12.0-16.0); LYMPHOCYTES # (AUTO) 1.4 10^3/uL (1.5-3.5); LYMPHOCYTES % (AUTO) 18.8 %; MEAN CORPUSCULAR HEMOGLOBIN 27.5 pg (27.0-31.0); MEAN CORPUSCULAR HGB CONC 30.8 g/dL (32.0-36.0); MEAN CORPUSCULAR VOLUME 89.1 fL (81.0-99.0); MEAN PLATELET VOLUME 10.6 fL (7.9-10.8); MONOCYTES # (AUTO) 0.5 10^3/uL (0.0-1.0); MONOCYTES % (AUTO) 6.3 %; NEUTROPHILS # (AUTO) 5.5 10^3/uL (1.5-6.6); NEUTROPHILS % (AUTO) 72.8 %; PLT - PLATELET COUNT 182 10^3/uL (130-450); RED BLOOD COUNT 4.04 10^6/uL (4.20-5.40); RED CELL DISTRIBUTION WIDTH 14.8 % (12.0-15.0); WHITE BLOOD COUNT 7.6 x10^3/uL (4.8-10.8)
[2020-08-28] MEDS: rOPINIRole 1 MG TABLET PO SCH ×3 (06:04→21:39)
--- NOTE | 2020-08-28 07:23 | PROVIDER PROGRESS NOTE ---
Assessment/Plan - Problem List (1) Sepsis Assessment/Plan: Improved/resolved. Patient's vitals are stable. She is breathing comfortably on room air Oxygen saturation at 95%. Antibiotics were discontinued today. Blood cultures are no growth to date. (2) Pneumonia Qualifiers: Pneumonia type: due to unspecified organism Laterality: left Lung location: lower lobe of lung Qualified Code(s): J18.9 - Pneumonia, unspecified organism Assessment/Plan: Improved/resolved. Patient's vitals are stable. She is breathing comfortably on room air Oxygen saturation at 95%. Antibiotics were discontinued today. Blood cultures are no growth to date. Chest x-ray done this morning 08/28/2020 showed no acute cardiopulmonary process. The previously seen minimal interstitial infiltrates when no longer seen. (3) Acute respiratory failure with hypoxia Assessment/Plan: Resolved. Likely secondary to pneumonia. Antibiotics were discontinued today. BNP 283. 2D echocardiogram ordered for 08/29/2020. (4) Altered mental status Assessment/Plan: 2/2 Septic state Resolved (5) RLS (restless legs syndrome) Assessment/Plan: On ropinirole (6) Hx of breast cancer Assessment/Plan: Patient has chronic left upper extremity lymphedema as a result of treatment - Current Meds Current Meds: Current Medications Generic Name Dose Route Start Last Admin Trade Name Freq PRN Reason Stop Dose Admin Acetaminophen 650 mg 08/26/20 02:27 08/26/20 23:58 Acetaminophen 325 Mg Tablet PO 650 mg Q4HR PRN Administration Pain or Fever > 38C (100.4F) Hydrocodone Bitart/Acetaminophen 1 tab 08/26/20 10:20 08/27/20 22:12 Hydrocod/Acetam 10 Mg/325 Mg Tablet PO 1 tab Q4H PRN Administration PAIN Carbidopa/Levodopa 1 tab 08/26/20 10:20 08/26/20 23:58 Carbidopa/Levodopa 25 Mg/100 Mg Tablet PO 1 tab QID PRN Administration spasm Gabapentin 100 mg 08/26/20 10:20 08/27/20 22:08 Gabapentin 100 Mg Capsule PO 100 mg BID IBIS Administration Guaifenesin 600 mg 08/26/20 21:00 08/27/20 22:08 Guaifenesin 600 Mg Tablet PO 600 mg BID IBIS Administration Ceftriaxone Sodium 2 gm/ 100 mls @ 200 mls/hr 08/26/20 17:00 08/27/20 09:30 Sodium Chloride IV Infused DAILY IBIS Infusion Levalbuterol HCl 1.25 mg 08/26/20 02:32 08/27/20 08:33 Levalbuterol 1.25 Mg/3 Ml Neb INH 1.25 mg Q4H PRN Administration Shortness of Air/Wheezing Ropinirole HCl 1 mg 08/26/20 05:00 08/28/20 06:04 Ropinirole 1 Mg Tablet PO 1 mg TID IBIS Administration Saccharomyces Boulardii 250 mg 08/26/20 10:24 08/27/20 16:56 Saccharomyces Boulardii 250 Mg Capsule PO 250 mg BIDWM IBIS Administration Sodium Chloride 10 ml 08/26/20 02:27 08/27/20 11:57 Sodium Chloride Flush 0.9% 10 Ml Syringe IVP 10 ml PRN PRN Administration NEEDED PER PROVIDER ORDERS Sodium Chloride 10 ml 08/26/20 09:00 08/28/20 00:30 Sodium Chloride Flush 0.9% 10 Ml Syringe IVP 10 ml 0100,0900,1700 IBIS Administration - Lab Result Fish Bone Diagrams: 08/28/20 05:08 08/28/20 07:43 - Additional Planning My Orders: My Active Orders 08/28/20 06:00 Chest 1 View X-Ray [XR] Routine Subjective - Subjective Patient Reports: Other (Patient is breathing more comfortably today. There is no conversational dyspnea. She was not on supplemental oxygen. Chronic lymphedema is still appreciable. She denied any other complaints otherwise.) Objective Vital Signs: Vital Signs - 24 hr 08/27/20 08/27/20 08/27/20 07:57 08:34 11:30 Temperature 37.0 C 37.4 C Heart Rate 82 Heart Rate [ 92 81 Brachial] Respiratory 19 20 18 Rate Blood Pressure 138/86 H 134/81 H [Right Brachial artery] O2 Saturation 93 96 08/27/20 08/27/20 08/27/20 16:11 20:20 20:47 Temperature 37.0 C 37.1 C Heart Rate 66 Heart Rate [ 82 66 Brachial] Respiratory 20 18 18 Rate Blood Pressure 131/63 H 150/75 H [Right Brachial artery] O2 Saturation 96 94 08/28/20 08/28/20 00:02 05:49 Temperature 36.8 C 36.9 C Heart Rate Heart Rate [ 75 87 Brachial] Respiratory 16 18 Rate Blood Pressure 129/58 L 131/70 H [Right Brachial artery] O2 Saturation 94 95 Oxygen O2 Source Room air I&O (Last 24 Hrs): Intake and Output Totals x24h 08/26/20 08/27/20 08/28/20 23:59 23:59 23:59 Intake Total 6095.057 1910 Output Total 600 100 Balance 5495.057 1910 -100 General: Alert, Oriented x3, Cooperative, No acute distress HEENT: PERRLA, EOMI Neck: Supple, No JVD Neuro: Alert, Non Focal, Oriented Times 3 Cardiovascular: Regular rate, Normal S1, Normal S2 Respiratory: Chest non-tender, No respiratory distress, Breath sounds nml Abdomen: Normal bowel sounds, Soft, No tenderness Extremities: Other (chronic left upper extremity edema) Skin: No rashes, No breakdown - Results Results: Laboratory Results WBC 7.6 x10^3/uL (4.8-10.8) 08/28/20 05:08 RBC 4.04 10^6/uL (4.20-5.40) L 08/28/20 05:08 Hgb 11.1 g/dL (12.0-16.0) L 08/28/20 05:08 Hct 36.0 % (37.0-47.0) L 08/28/20 05:08 MCV 89.1 fL (81.0-99.0) 08/28/20 05:08 MCH 27.5 pg (27.0-31.0) 08/28/20 05:08 MCHC 30.8 g/dL (32.0-36.0) L 08/28/20 05:08 RDW 14.8 % (12.0-15.0) 08/28/20 05:08 Plt Count 182 10^3/uL (130-450) 08/28/20 05:08 MPV 10.6 fL (7.9-10.8) 08/28/20 05:08 Neut # (Auto) 5.5 10^3/uL (1.5-6.6) 08/28/20 05:08 Lymph # (Auto) 1.4 10^3/uL (1.5-3.5) L 08/28/20 05:08 Cameron # (Auto) 0.5 10^3/uL (0.0-1.0) 08/28/20 05:08 Eos # (Auto) 0.1 10^3/uL (0.0-0.7) 08/28/20 05:08 Baso # (Auto) 0.0 10^3/uL (0.0-0.1) 08/28/20 05:08 Absolute Nucleated RBC 0.00 x10^3/uL 08/28/20 05:08 Nucleated RBC % 0.0 /100WBC 08/28/20 05:08 Sodium 140 mmol/L (135-145) 08/26/20 04:40 Potassium 3.8 mmol/L (3.5-5.0) 08/26/20 04:40 Chloride 107 mmol/L (101-111) 08/26/20 04:40 Carbon Dioxide 22 mmol/L (21-32) 08/26/20 04:40 Anion Gap 11.0 (6-13) 08/26/20 04:40 BUN 15 mg/dL (6-20) 08/26/20 04:40 Creatinine 0.8 mg/dL (0.4-1.0) 08/26/20 04:40 Estimated GFR (MDRD) 69 (>89) L 08/26/20 04:40 Glucose 123 mg/dL (70-100) H 08/26/20 04:40 Lactic Acid 1.4 mmol/L (0.5-2.2) 08/25/20 23:40 Calcium 8.6 mg/dL (8.5-10.3) 08/26/20 04:40 Magnesium 1.8 mg/dL (1.7-2.8) 08/27/20 11:21 Total Bilirubin 0.3 mg/dL (0.2-1.0) 08/25/20 23:35 AST 20 IU/L (10-42) 08/25/20 23:35 ALT 16 IU/L (10-60) 08/25/20 23:35 Alkaline Phosphatase 61 IU/L (42-121) 08/25/20 23:35 C-Reactive Protein 15.9 mg/dL (0-1.0) H 08/28/20 05:08 B-Natriuretic Peptide 283 pg/mL (5-100) H 08/28/20 05:08 Total Protein 6.4 g/dL (6.7-8.2) L 08/25/20 23:35 Albumin 3.8 g/dL (3.2-5.5) 08/25/20 23:35 Globulin 2.6 g/dL (2.1-4.2) 08/25/20 23:35 Albumin/Globulin Ratio 1.5 (1.0-2.2) 08/25/20 23:35 Urine Color YELLOW 08/26/20 00:31 Urine Clarity CLEAR (CLEAR) 08/26/20 00:31 Urine pH 6.5 PH (5.0-7.5) 08/26/20 00:31 Ur Specific Walsh 1.015 (1.002-1.030) 08/26/20 00:31 Urine Protein NEGATIVE mg/dL (NEGATIVE) 08/26/20 00:31 Urine Glucose (UA) NEGATIVE mg/dL (NEGATIVE) 08/26/20 00:31 Urine Ketones NEGATIVE mg/dL (NEGATIVE) 08/26/20 00:31 Urine Occult Blood TRACE-INTA (NEGATIVE) 08/26/20 00:31 Urine Nitrite NEGATIVE (NEGATIVE) 08/26/20 00:31 Urine Bilirubin NEGATIVE (NEGATIVE) 08/26/20 00:31 Urine Urobilinogen 0.2 (NORMAL) E.U./dL (NORMAL) 08/26/20 00:31 Ur Leukocyte Esterase NEGATIVE (NEGATIVE) 08/26/20 00:31 Urine RBC 0-5 /HPF (0-5) 08/26/20 00:31 Urine WBC 0-3 /HPF (0-5) 08/26/20 00:31 Ur Squamous Epith Cells RARE Squamous (<= Few) 08/26/20 00:31 Urine Bacteria Rare /HPF (None Seen) 08/26/20 00:31 Urine Culture Comments NOT INDICATED 08/26/20 00:31 Nasal Adenovirus (PCR) NOT DETECTED 08/26/20 00:38 Nasal B. parapertussis DNA (PCR) NOT DETECTED 04 00:38 Nasal Coronavir 229E PCR NOT DETECTED 08/26/20 00:38 Nasal Coronavir HKU1 PCR NOT DETECTED 08/26/20 00:38 Nasal Coronavir NL63 PCR NOT DETECTED 08/26/20 00:38 Nasal Coronavir OC43 PCR NOT DETECTED 08/26/20 00:38 Nasal Enterovir/Rhinovir PCR NOT DETECTED 04 00:38 Nasal Influenza B PCR NOT DETECTED 08/26/20 00:38 Nasal Influenza A PCR NOT DETECTED 08/26/20 00:38 Nasal Parainfluen 1 PCR NOT DETECTED 08/26/20 00:38 Nasal Parainfluen 2 PCR NOT DETECTED 04 00:38 Nasal Parainfluen 3 PCR NOT DETECTED 08/26/20 00:38 Nasal Parainfluen 4 PCR NOT DETECTED 08/26/20 00:38 Nasal RSV (PCR) NOT DETECTED 08/26/20 00:38 Nasal B.pertussis DNA PCR NOT DETECTED 04 00:38 Nasal C.pneumoniae (PCR) NOT DETECTED 08/26/20 00:38 Esteban Human Metapneumo PCR NOT DETECTED 08/26/20 00:38 Nasal M.pneumoniae (PCR) NOT DETECTED 04 00:38 Nasal SARS-CoV-2 (PCR) NOT DETECTED 04 00:38 ABX Reporting Has patient been on IV antibiotics over the past 48 hours?: Yes
--- NOTE | 2020-08-28 07:37 | XRAY Report ---
PROCEDURE: Chest 1 View X-Ray INDICATIONS: dyspnea TECHNIQUE: One view of the chest was acquired. COMPARISON: 08/25/2020 FINDINGS: Surgical changes and devices: Left axillary clips are seen. Epigastric clips can be seen. Lungs and pleura: No pleural effusions or pneumothorax. Lungs are clear, hyperexpanded. Mediastinum: The aorta is prominent and tortuous. The cardiac contours are within normal limits. Bones and chest wall: No suspicious bony lesions. Age-appropriate degenerative changes are seen. Overlying soft tissues appear unremarkable. IMPRESSION: Hyperexpanded lungs are seen, without an acute cardiopulmonary abnormality seen. The previously seen minimal interstitial infiltrates are no longer seen. Postoperative and degenerative changes are seen. Reviewed by: Freddy Jorgensen MD on 08/28/2020 6:36 AM [facility] Approved by: Freddy Jorgensen MD on 08/28/2020 6:36 AM [facility]SUEL[facility] Station ID: [id number]
[2020-08-28 08:15] LABS: CREATININE 0.7 mg/dL (0.4-1.0); POTASSIUM 3.4 mmol/L (3.5-5.0)
[2020-08-28] MEDS: SACCHAROMYCES BOULARDII 250 MG CAPSULE PO SCH ×2 (08:20→16:17)
[2020-08-28] MEDS: guaiFENesin 600 MG TABLET PO SCH ×2 (08:20→21:33)
[2020-08-28] MEDS: GABAPENTIN 100 MG CAPSULE PO SCH ×2 (08:20→21:39)
[2020-08-28] MEDS: cefTRIAXone 2 GM in SODIUM CHLORIDE 0.9% MINIBAG 100 ML IV SCH (08:25)
[2020-08-28] MEDS: ACETAMINOPHEN 325 MG TABLET PO PRN (13:53)
[2020-08-28] MEDS ORDERED: POTASSIUM CHLORIDE 20 MEQ TABLET PO ONE (19:08)
[2020-08-29] MEDS: SODIUM CHLORIDE FLUSH 0.9% 10 ML SYRINGE IVP SCH ×2 (00:07→09:40)
[2020-08-29] MEDS: rOPINIRole 1 MG TABLET PO SCH ×2 (05:03→13:57)
[2020-08-29 06:28] LABS: BASOPHILS % (AUTO) 0.5 %; EOSINOPHILS # (AUTO) 0.1 10^3/uL (0.0-0.7); EOSINOPHILS % (AUTO) 1.2 %; HCT - HEMATOCRIT 39.3 % (37.0-47.0); HGB - HEMOGLOBIN 11.9 g/dL (12.0-16.0); LYMPHOCYTES # (AUTO) 1.4 10^3/uL (1.5-3.5); MEAN CORPUSCULAR HGB CONC 30.3 g/dL (32.0-36.0); MEAN CORPUSCULAR VOLUME 89.1 fL (81.0-99.0); MEAN PLATELET VOLUME 11.1 fL (7.9-10.8); MONOCYTES # (AUTO) 0.3 10^3/uL (0.0-1.0); MONOCYTES % (AUTO) 3.9 %; NEUTROPHILS # (AUTO) 5.8 10^3/uL (1.5-6.6); NEUTROPHILS % (AUTO) 76.1 %; PLT - PLATELET COUNT 265 10^3/uL (130-450); RED BLOOD COUNT 4.41 10^6/uL (4.20-5.40); RED CELL DISTRIBUTION WIDTH 14.7 % (12.0-15.0); WHITE BLOOD COUNT 7.7 x10^3/uL (4.8-10.8)
[2020-08-29 07:59] LABS: CALCIUM 9.9 mg/dL (8.5-10.3); CREATININE 0.7 mg/dL (0.4-1.0); CRP - C-REACTIVE PROTEIN 8.3 mg/dL (0-1.0)
[2020-08-29] MEDS: SACCHAROMYCES BOULARDII 250 MG CAPSULE PO SCH (08:06)
[2020-08-29] MEDS: GABAPENTIN 100 MG CAPSULE PO SCH (08:06)
[2020-08-29] MEDS: guaiFENesin 600 MG TABLET PO SCH (08:06)
--- NOTE | 2020-08-29 08:22 | DISCHARGE SUMMARY ---
Discharge Summary Admit Date: 08/26/20 Discharge Date: 08/29/20 Discharging Provider: Michele Cote Primary Care Provider: Elida Salinas Code Status: Do Not Attempt Resuscitation Condition at Discharge: Stable Discharge Disposition: 01 Home, Self Care - DIAGNOSES Admission Diagnoses: Sepsis Hemodynamic instability Community-acquired pneumonia Acute renal failure with hypoxia Altered mental status Anemia Depression History of asthma History of breast cancer Restless leg syndrome Discharge Diagnoses with Status of Each Condition: Sepsis: Acute. Secondary to pneumonia. Resolved Community-acquired pneumonia: Acute. Resolved Acute respiratory failure with hypoxia: Acute. Secondary to pneumonia and all heart failure. Improved/resolved Heart failure: Acute. New onset. 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 Altered mental status: Acute. Resolved Anemia: Chronic Depression: Chronic History of asthma History of breast cancer Restless leg syndrome: Chronic - HPI History of Present Illness: Patient is a 80-year-old female with history of remote breast cancer with prior treatment from which she has Chronic left upper extremity Lymphedema. Other medical problems include restless leg syndrome, history of asthma, history of depression. She presented to the ED via EMS after her family members came over to visit them and found her to be confused. 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 She was also noted to be short of breath. On subsequent information gathering she reported that she has been checking her oxygen regularly at home and her oxygen saturation was 89% on room air. This was verified by EMS. She was also found to be hypotensive. In the ER she had a systolic blood pressure of 97 and a heart rate of 115. Her tempera ture was 39.4 C. Work-up in the ED included a chest x-ray which showed left- sided consolidation. Thus she was admitted for further treatment of community- acquired pneumonia. She was given IV hydration and started on Rocephin and azithromycin after blood cultures were drawn. By the time of discharge blood cultures were no growth x5 days. During the course of her hospital stay she went from requiring about 2 L of oxygen via nasal cannula to breathing comfortably on room air with oxygen saturation between 95 and 100%. Initial white blood cell count was 16.5 but over her hospital stay normalized and at discharge her white blood cell count was 7.7. About 2 days prior to discharge patient had a short run of V. tach. Also she had a day of worsening respiratory status where she was significantly conversationally dyspneic. During these episodes she denied chest pain. Work-up included a BNP which was 283. As a result a 2D echocardiogram was ordered. She had a 2D echocardiogram done on 08/29/20 which is a day of discharge. This showed a left ventricular size is normal. There was mild concentric left ventricular hypertrophy. Overall left ventricular systolic function was moderately globally impaired with an ejection fraction of 35 to 40%. Impaired relaxation consistent with grade 1 diastolic dysfunction. No regional wall motion abnormalities. There was mild aortic valve sclerosis. There was no evidence of aortic stenosis. There was mild aortic regurgitation. There was insufficient TR jet to accurately assess RVSP. Spoke with the patient's bilingual counter sales retail Dr. Savita Lowe with [facility] cardiology in [facility] He was agreeable to scheduling appointment wi thin the week for a cardiac cath. This was relayed to the patient. Advised her that if she had not heard from her bilingual counter sales retail in 3 to 4 days to call the office again. I also further advised the patient that if she experienced chest pain, dizziness or if her work of breathing got worse she should seek medical attention immediately. For that she was advised not to overexert herself when she went home. She expressed understanding of the above. I did tell discharge her blood pressure is 134 and 81, pulse 80 respiratory rate 18 oxygen saturation 97% on room air temperature 37 C. - ALLERGIES Allergies/Adverse Reactions: Allergies Allergy/AdvReac Type Severity Reaction Status Date / Time Penicillins Allergy Mild itchng Verified 08/25/20 23:07 - MEDICATIONS Home Medications: Ambulatory Orders Medication Instructions Recorded Confirmed Albuterol [Ventolin Hfa] 2 puffs INH Q4H PRN #1 inhaler 03/03/13 08/25/20 Carbidopa/Levodopa 25/100 [Sinemet 1 each PO QID PRN 03/03/13 08/25/20 25 mg/100 mg] Gabapentin [Neurontin] 100 mg PO BID 03/03/13 08/25/20 HYDROcodone/ACET 10/325 [[place] 10 1 - 2 tab PO BID PRN 03/03/13 08/26/20 mg/325 mg] Omeprazole [PriLOSEC] 20 mg PO QDAC 03/03/13 08/26/20 Ropinirole HCl 1 mg PO TID 03/03/13 08/25/20 Lovastatin 20 mg PO QPM 08/26/20 08/26/20 Venlafaxine ER [Effexor ER] 150 mg PO DAILY 08/26/20 08/26/20 amLODIPine [Norvasc] 5 mg PO DAILY 08/26/20 08/26/20 - PHYSICAL EXAM AT DISCHARGE General Appearance: positive: No acute distress, Alert Eyes Bilateral: positive: PERRL, EOMI ENT: positive: No signs of dehydration Neck: positive: No JVD, Trachea midline Respiratory: positive: Chest non-tender, No respiratory distress, Wheezes (mild). negative: Rales, Rhonchi Cardiovascular: positive: Regular rate & rhythm, No murmur Abdomen: positive: Non-tender, No organomegaly, Nml bowel sounds, No distention. negative: Guarding, Rebound Back: positive: Nml inspection Skin: positive: Color nml, No rash, Warm, Dry Extremities: positive: Other (Chronic left upper extremity lymphedema) Neurologic/Psychiatric: positive: Oriented x3, Mood/affect nml - LABS Result Diagrams: 08/29/20 05:35 08/29/20 07:21 - FOLLOW UP Follow Up: Dr Savita Lowe (bilingual counter sales retail) at [facility] within a week - TIME SPENT Time Spent in Discharge (Minutes): 25
--- NOTE | 2020-08-29 08:22 | Discharge Plan ---
Discharge Plan Problem Reviewed?: Yes Disposition: 01 Home, Self Care Condition: Stable Diet: Cardiac Activity Restrictions: Activity as Tolerated Weight Bearing: Full Weight Health Concerns: You were admitted 3 days ago with confusion and shortness of breath. Work-up showed that you had a pneumonia for which she was placed on Rocephin and azithromycin. You responded well to treatment over the cause of 3 days. At the time of discharge your blood pressure is 134/81, heart rate 80, oxygen saturation 97% on room air and the respiratory rate is 18. On the second day of your hospital stay you had a short run of V. tach. You were also noted to have some conversational dyspnea. Further work-up included a BNP which was 283. As a result you had an echocardiogram done. It showed your ejection fraction to be 35 to 40%. Your left ventricular systolic function was moderately globally impaired. As a result I reached out to your oil burner technician Dr. Savita Lowe With [facility] in [facility]. He is agreeable to schedule an appointment within the week for a cardiac cath. This has been relayed to you and you are in agreement with the plan. You have been advised not to exert yourself when you go home. If you experience chest pain, dizziness or your breathing gets worse you should seek medical attention immediately. If you do not hear from the oil burner technician office within 3 to 4 days, please reach out to Dr. Lowe's clinic Plan of Treatment: You were admitted 3 days ago with confusion and shortness of breath. Work-up showed that you had a pneumonia for which she was placed on Rocephin and azithromycin. You responded well to treatment over the cause of 3 days. At the time of discharge your blood pressure is 134/81, heart rate 80, oxygen saturation 97% on room air and the respiratory rate is 18. On the second day of your hospital stay you had a short run of V. tach. You were also noted to have some conversational dyspnea. Further work-up included a BNP which was 283. As a result you had an echocardiogram done. It showed your ejection fraction to be 35 to 40%. Your left ventricular systolic function was moderately globally impaired. As a result I reached out to your oil burner technician Dr. Savita Lowe With [facility] in [facility]. He is agreeable to schedule an appointment within the week for a cardiac cath. This has been relayed to you and you are in agreement with the plan. You have been advised not to exert yourself when you go home. If you experience chest pain, dizziness or your breathing gets worse you should seek medical attention immediately. If you do not hear from the oil burner technician office within 3 to 4 days, please reach out to Dr. Lowe's clinic Care Goals: You were admitted 3 days ago with confusion and shortness of breath. Work-up showed that you had a pneumonia for which she was placed on Rocephin and azithromycin. You responded well to treatment over the cause of 3 days. At the time of discharge your blood pressure is 134/81, heart rate 80, oxygen saturation 97% on room air and the respiratory rate is 18. On the second day of your hospital stay you had a short run of V. tach. You were also noted to have some conversational dyspnea. Further work-up included a BNP which was 283. As a result you had an echocardiogram done. It showed your ejection fraction to be 35 to 40%. Your left ventricular systolic function was moderately globally impaired. As a result I reached out to your oil burner technician Dr. Savita Lowe With [facility] cardiology in [facility]. He is agreeable to schedule an appointment within the week for a cardiac cath. This has been relayed to you and you are in agreement with the plan. You have been advised not to exert yourself when you go home. If you experience chest pain, dizziness or your breathing gets worse you should seek medical attention immediately. If you do not hear from the oil burner technician office within 3 to 4 days, please reach out to Dr. Lowe's clinic Assessment: You were admitted 3 days ago with confusion and shortness of breath. Work-up showed that you had a pneumonia for which she was placed on Rocephin and azithromycin. You responded well to treatment over the cause of 3 days. At the time of discharge your blood pressure is 134/81, heart rate 80, oxygen saturation 97% on room air and the respiratory rate is 18. On the second day of your hospital stay you had a short run of V. tach. You were also noted to have some conversational dyspnea. Further work-up included a BNP which was 283. As a result you had an echocardiogram done. It showed your ejection fraction to be 35 to 40%. Your left ventricular systolic function was moderately globally impaired. As a result I reached out to your oil burner technician Dr. Savita Lowe With [facility] cardiology in [facility]. He is agreeable to schedule an appointment within the week for a cardiac cath. This has been relayed to you and you are in agreement with the plan. You have been advised not to exert yourself when you go home. If you experience chest pain, dizziness or your breathing gets worse you should seek medical attention immediately. If you do not hear from the oil burner technician office within 3 to 4 days, please reach out to Dr. Lowe's clinic No Smoking: If you smoke, Please STOP! Call for help.
[2020-08-29] MEDS ORDERED: amLODIPine 5 MG TABLET PO SCH (09:00)
[2020-08-29 16:04] VITALS: BP 126/85
== END 2020-08-29 15:50 | disposition home or self-care (01) | DRG 871 ==
LOC: EDUNIT# → ED 22:43 → MS3 08-26 02:27
PROVIDERS: ADMIT Internal Medicine; ATTEND Internal Medicine
DX: A41.9 Sepsis, unspecified organism (principal); J18.9 Pneumonia, unspecified organism; R09.02 Hypoxemia; I95.9 Hypotension, unspecified; E78.00 Pure hypercholesterolemia, unspecified; J96.01 Acute respiratory failure with hypoxia; I50.41 Acute combined systolic (congestive) and diastolic (congestive) heart failure; J45.909 Unspecified asthma, uncomplicated; R41.82 Altered mental status, unspecified; D64.9 Anemia, unspecified; K21.9 Gastro-esophageal reflux disease without esophagitis; F32.9 Major depressive disorder, single episode, unspecified; I97.2 Postmastectomy lymphedema syndrome; G25.81 Restless legs syndrome; Z20.822 Contact with and (suspected) exposure to COVID-19; Z66 Do not resuscitate; Z79.51 Long term (current) use of inhaled steroids; Z79.899 Other long term (current) drug therapy; Z85.3 Personal history of malignant neoplasm of breast
CPT/HCPCS: 36415; 71045; 80048; 80053; 81001; 83605; 83735; 83880; 84484; 85025; 86140; 87040; 87631; 93005; 93306; 96365; 96366; 96368; 96375; 99284; 99285; A9270; 0202U; 87086; 94640

== ENCOUNTER 2020-12-23 12:33 | Outpatient (CLI) | payer MEDICARE, OTHER | END 2020-12-23 12:34 | disposition home or self-care (01) | LOC: LAB.S 12:33 | PROVIDERS: ATTEND Registered Nurse | DX: Z53.9 Procedure and treatment not carried out, unspecified reason (principal); G25.81 Restless legs syndrome | CPT/HCPCS: 36415; 82728; 83540; 84466 ==

== ENCOUNTER 2020-12-29 12:52 | Outpatient (CLI) | payer MEDICARE, OTHER ==
[2020-12-29 17:13] LABS: % IRON SATURATION 13 % (20-50); IRON 66 ug/dL (28-170); TOTAL IRON BINDING CAPACITY 517 ug/dL (250-450); TRANSFERRIN 369 mg/dL (192-382)
== END 2020-12-29 12:53 | disposition home or self-care (01) ==
LOC: LAB.S 12:52
PROVIDERS: ATTEND Registered Nurse
DX: I50.21 Acute systolic (congestive) heart failure (principal)
CPT/HCPCS: 36415; 82728; 83540; 84466

== ENCOUNTER 2021-09-20 16:05 | Outpatient (CLI) | payer MEDICARE, OTHER ==
--- NOTE | 2021-09-20 17:07 | XRAY Report ---
PROCEDURE: Foot 3 View LT INDICATIONS: PAIN IN LEFT FOOT TECHNIQUE: 3 views of the foot were acquired. COMPARISON: None FINDINGS: Bones: No fractures or dislocations. No suspicious bony lesions. Medial bunion noted. Mild hallux v algus deformity. Soft tissues: No tibiotalar joint effusion. Achilles tendon appears normal. IMPRESSION: No fracture. No acute osseous lesion. If symptoms and/or clinical concern for pathology persists, fur ther assessment with repeat plain film radiographs (7-10 days) or advanced imaging (CT, MR, bone scan ) should be considered. Hallux valgus deformity. Medial bunion. Reviewed by: Nora Gan MD, PhD on 09/20/2021 5:06 PM PDT Approved by: Nora Gan MD, PhD on 09/20/2021 5:06 PM PDT Station ID: [id number]
== END 2021-09-20 16:06 | disposition home or self-care (01) ==
LOC: DI.S 16:05
PROVIDERS: ATTEND Registered Nurse
DX: M79.672 Pain in left foot (principal)

== ENCOUNTER 2022-03-13 13:42 | Outpatient (CLI) | payer MEDICARE, OTHER ==
--- NOTE | 2022-03-14 09:24 | MRI Report ---
PROCEDURE: SHOULDER WO - RT INDICATIONS: RIGHT SHOULDER IMPINGEMENT SYNDROME TECHNIQUE: Noncontrast oblique coronal T2 fast spin echo with fat saturation, oblique sagittal T1 spin echo and T2 fast spin echo with fat saturation, axial T1 spin echo and T2 fast spin echo with fat saturation t hrough the shoulder. COMPARISON: None. FINDINGS: Image quality: Excellent. Rotator cuff: Moderate grade articular and bursal surface partial-thickness tear involving distal sup raspinatus at its insertion on humeral head is seen extending to musculotendinous junction. Low-grade bursal surface partial-thickness tear involving distal infraspinatus at its insertion on humeral hea d is also noted. Distal subscapularis tendinosis and low-grade partial-thickness tear involving its s uperior fibers. No full-thickness rotator cuff tendon rupture. Very mild supraspinatus muscle atrophy is seen on sagittal images. Bones and bursae: No bone marrow contusions or fractures. Moderate acromioclavicular joint osteoarth ritic changes are seen with joint space narrowing and downward osteophyte formation depressing on mus culotendinous junction of supraspinatus. Moderate glenohumeral joint osteoarthritic changes also note d with joint space narrowing and subchondral sclerosis. There is moderate amount of subacromial subde ltoid bursal fluid. No gross loose bodies. Capsule and soft tissues: There is signal abnormality and contour irregularity involving superior ant erior labrum at 12 to 2:00 position suggestive of superior anterior labral tear. Degenerative changes also noted involving inferior labrum with possible subtle anterior inferior labral tear at 5 to 6:00 position. The long head of the biceps tendon is not well seen intra-articularly. The rotator interv al appears normal, without fibrosis. The coracohumeral ligament is normal in thickness. IMPRESSION: 1. Moderate grade articular and bursal surface partial-thickness tear involving distal supraspinatus extending to musculotendinous junction. Distal infraspinatus tendinosis and low-grade bursal surface partial-thickness tear. Low-grade partial-thickness tear involving superior fibers of distal subscapu jemima. No full-thickness rotator cuff tendon rupture. Very mild supraspinatus muscle atrophy. 2. Moderate acromioclavicular joint osteoarthritis and glenohumeral joint osteoarthritis. Moderate jaron int effusion and subacromial subdeltoid bursal fluid. No gross loose bodies. 3. Suggestion of superior anterior labral tear at 12 to 2:00 position and possible anterior inferior labral tear at 5 to 6:00 position. 4. Poorly visualized proximal intra-articular portion of long head of biceps concerning for moderate to high-grade partial thickness tear versus full-thickness rupture of proximal biceps tendon. Reviewed by: John Martinez MD on 03/14/2022 9:22 AM PDT Approved by: John Martinez MD on 03/14/2022 9:22 AM PDT Station ID: [id number]
== END 2022-03-13 13:43 | disposition home or self-care (01) ==
LOC: DI 13:42
PROVIDERS: ATTEND Registered Nurse
DX: M75.41 Impingement syndrome of right shoulder (principal); M75.111 Incomplete rotator cuff tear or rupture of right shoulder, not specified as traumatic; M19.011 Primary osteoarthritis, right shoulder; M25.411 Effusion, right shoulder

== ENCOUNTER → 2022-07-20 14:45 | Outpatient (CLI) | payer MEDICARE, OTHER ==
--- NOTE | 2022-07-20 17:23 | XRAY Report ---
PROCEDURE: Lumbar Spine 2 View INDICATIONS: LUMBAR BACK PAIN TECHNIQUE: 2 views of the lumbar spine were acquired. COMPARISON: None FINDINGS: Bones: 5 [id number] vertebrae are present. Mild straightening of normal lumbar lordosis. Grade 1 anterolisthesis of L5 on S1. Multilevel spondylitic changes most severe at L5-S1. No acute vertebra l body compression fractures. No suspicious bony lesions. Partially imaged right total hip arthropl asty hardware. Soft tissues: Overlying bowel gas pattern is normal. No suspicious soft tissue calcifications. Tre gical clips project over the upper abdomen. IMPRESSION: Lumbar spine without acute fracture. Grade 1 anterolisthesis of L5 on S1. Multilevel lum bar spondylosis most severe at L5-S1. Reviewed by: Jarek Friend MD on 07/20/2022 5:21 PM PST Approved by: Jarek Friend MD on 07/20/2022 5:21 PM PST Station ID: [id number]
== END | disposition home or self-care (01) ==
LOC: DI.S 14:45
PROVIDERS: ATTEND Physician Assistant
DX: M47.816 Spondylosis without myelopathy or radiculopathy, lumbar region (principal); M47.817 Spondylosis without myelopathy or radiculopathy, lumbosacral region; M43.17 Spondylolisthesis, lumbosacral region

== ENCOUNTER 2023-05-16 07:00 | Outpatient (CLI) | payer MEDICARE, OTHER ==
--- NOTE | 2023-05-16 20:04 | XRAY Report ---
PROCEDURE: Ankle 3+V RT INDICATIONS: RIGHT ANKLE PAIN TECHNIQUE: 3 views of the ankle were acquired. COMPARISON: None. FINDINGS: Bones: No acute fractures or dislocations. Ankle mortise is normally aligned. No suspicious bony l esions. Soft tissues: No suspicious soft tissue calcification. IMPRESSION: No acute osseous abnormality. If there is clinical concern or persistent symptoms, additional imaging such as repeat radiographs or advanced imaging (e.g. CT, MRI) may be helpful for further evaluation. Reviewed by: Kareem Sharpe MD on 05/16/2023 8:03 PM PST Approved by: Kareem Sharpe MD on 05/16/2023 8:03 PM PST Station ID: [id number]
== END 2023-05-16 23:59 | disposition home or self-care (01) ==
LOC: DI.S 07:00
PROVIDERS: ATTEND Physician Assistant Medical
DX: M25.571 Pain in right ankle and joints of right foot (principal)

== ENCOUNTER 2023-11-14 21:09 | Outpatient (CLI) | payer MEDICARE, OTHER | END 2023-11-14 21:10 | disposition critical access hospital (66) | LOC: EMS 21:09 | DX: M79.652 Pain in left thigh (principal); W18.39XA Other fall on same level, initial encounter; Y93.K1 Activity, walking an animal; Z96.642 Presence of left artificial hip joint | CPT/HCPCS: A0425; A0429 ==

== ENCOUNTER 2023-11-14 21:49 | Emergency (ER) | payer MEDICARE, OTHER ==
--- NOTE | 2023-11-14 22:57 | XRAY Report ---
PROCEDURE: Hip w/Pelvis 2-3V LT INDICATIONS: GLF post hip replacement 1 month ago TECHNIQUE: 3 views of the hip were acquired. COMPARISON: Lumbar spine radiograph dated 07/20/2022. FINDINGS: Bones: There is prior bilateral hip arthroplasty. Bilateral hip alignment is anatomic. No fracture or dislocation. No radiographic evidence of hardware loosening or failure. No suspicious bony lesions. Soft tissues: No suspicious soft tissue calcifications or masses. IMPRESSION: Prior bilateral hip arthroplasty. No pelvic or hip fracture. No evidence of hardware loosening or stephanie lure. Reviewed by: John Gutierrez MD on 11/14/2023 10:56 PM PDT Approved by: John Gutierrez MD on 11/14/2023 10:56 PM PDT Station ID: [id number]
--- NOTE | 2023-11-14 23:46 | ED Physician Documentation ---
PD HPI LOWER EXT INJURY - Stated complaint Stated Complaint: FELL OFF SCOOTER, RECENT HIP REPLACEMENT AT [facility] - Chief complaint Chief Complaint: Ext Problem - History obtained from History obtained from: Patient - History of Present Illness PD HPI LOW EXT INJURY LOCATION: Left, Hip Type of injury: Fall Where injury occurred: Street Timing - onset: Today Timing - duration: Hours Timing - details: Abrupt onset, Still present Improved by: Rest, Immobilization Worsened by: Moving, Palpating Associated symptoms: Swelling. No: Weakness, Numbness, Tingling Contributing factors: Prior ortho surgery. No: Anticoagulated Similar symptoms before: Diagnosis (hip contusion) Recently seen: Surgery - Additional information Additional information: 83-year-old Ciara Hager had a hip replacement done a little over 1 month ago and she was out riding her mobility scooter taking her dog on a walk today when the dog ran after a rabbit and she was unable to let go of the leash quick enough the dog pulled her and a mobility scooter over onto the top of her and she landed on her left hip. She was able to walk home and she is here now for evaluation thinking she might of had a problem with loosening of her hardware. She has been here for more than an hour and she feels that she when she is walking to the bathroom now that her pain is much better. 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 Psych: Depression Musculoskeletal: Osteoarthritis, Other - Past Surgical History Past Surgical History: Yes General: Hiatal hernia repair Ortho: Hip replacement - Present Medications Home Medications: Ambulatory Orders Medication Instructions Recorded Confirmed Albuterol [Ventolin Hfa] 2 puffs INH Q4H PRN #1 inhaler 03/03/13 11/15/23 Carbidopa/Levodopa 25/100 [Sinemet 1 each PO QID PRN 03/03/13 11/15/23 25 mg/100 mg] Gabapentin [Neurontin] 100 mg PO BID 03/03/13 11/15/23 HYDROcodone/ACET 10/325 [[place] 10 1 - 2 tab PO BID PRN 03/03/13 11/15/23 mg/325 mg] Omeprazole [PriLOSEC] 20 mg PO QDAC 03/03/13 11/15/23 Ropinirole HCl 1 mg PO TID 03/03/13 11/15/23 Lovastatin 20 mg PO QPM 08/26/20 11/15/23 Venlafaxine ER [Effexor ER] 150 mg PO DAILY 08/26/20 11/15/23 amLODIPine [Norvasc] 5 mg PO DAILY 08/26/20 11/15/23 - Allergies Allergies/Adverse Reactions: Allergies Allergy/AdvReac Type Severity Reaction Status Date / Time Penicillins Allergy Mild itchng Verified 11/14/23 21:59 - Social History Does the pt smoke?: No Smoking Status: Never smoker Does the pt drink ETOH?: Yes Does the pt have substance abuse?: No - Immunizations Immunizations are current?: Yes - POLST Patient has POLST: No PD ED PE NORMAL - Vitals Vital signs reviewed: Yes (hypotensive ) - General General: Alert and oriented X 3, No acute distress, Well developed/nourished - HEENT HEENT: Atraumatic, PERRL, EOMI - Respiratory Respiratory: No respiratory distress - Derm Derm: Normal color, Warm and dry, No rash - Extremities Extremities: No deformity, No edema, Other (there is a healed surgical site to the left hip posteriorly without signs of inflamation. the area is tender with signs of bruising. 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, No motor deficit, No sensory deficit, Normal speech Eye Opening: Spontaneous Motor: Obeys Commands Verbal: Oriented GCS Score: 15 - Psych Psych: Normal mood, Normal affect Results - Vitals Vitals: Vital Signs - 24 hr 11/14/23 11/14/23 11/15/23 21:56 22:05 00:00 Temperature 36.5 C Heart Rate 76 83 68 Respiratory 18 18 18 Rate Blood Pressure 84/66 L 131/74 H 141/67 H O2 Saturation 99 99 99 11/15/23 00:54 Temperature Heart Rate 89 Respiratory 18 Rate Blood Pressure 144/86 H O2 Saturation 98 Oxygen O2 Source Room air - Rads (name of study) left hip Relevant Findings:: Prelim report reviewed (Impression: Prior bilateral hip arthroplasty. No pelvic or hip fracture. No evidence of hardware loosening or failure.), EMP independent interpretation of test, See rad report PD Medical Decision Making - ED course Complexity details: considered differential, d/w patient ED course: 83-year-old female who is fallen onto her left hip which has had a recent repair is ambulating relatively well. X-rays without evidence of abnormality to the hardware. No evidence of a fracture. Departure - Departure Disposition: 01 Home, Self Care Clinical Impression: Contusion, hip Qualifiers: Encounter type: initial encounter Laterality: left Qualified Code(s): S70.02XA - Contusion of left hip, initial encounter Condition: Stable Instructions: ED Contusion Hip Follow-Up: Zhane Ferguson ARNP [Primary Care Provider] - Comments: Ciara, today it looks like your hip prosthesis is in position and without evidence of loosening of the hardware. Hip contusion usually takes about a week to 10 days to resolve and use of a cane or walker may be necessary.The expectation is complete resolution of your symptoms within that period of time. Forms: PCP List Discharge Date/Time: 11/15/23 00:54
[2023-11-15 00:57] VITALS: BP 144/86; O2SAT 98
== END 2023-11-15 00:54 | disposition home or self-care (01) ==
LOC: EDUNIT# → ED 21:49
DX: S70.02XA Contusion of left hip, initial encounter (principal); V00.831A Fall from motorized mobility scooter, initial encounter; Y93.K1 Activity, walking an animal; Y92.410 Unspecified street and highway as the place of occurrence of the external cause; Z96.642 Presence of left artificial hip joint
CPT/HCPCS: 99283

== ENCOUNTER 2023-12-02 08:00 | Outpatient (CLI) | payer MEDICARE, OTHER ==
--- NOTE | 2023-12-02 18:03 | XRAY Report ---
PROCEDURE: Ribs w/PA Chest 3+V LT INDICATIONS: CONTUSION OF ABDOMINAL WALL TECHNIQUE: 2 views of the ribs were acquired, along with a single view chest. COMPARISON: None. FINDINGS: Surgical changes and devices: Surgical clips project over the chest wall and abdomen. Bones and chest wall: No fractures or dislocations. No suspicious bony lesions. Overlying soft tis sues appear unremarkable. Lungs and pleura: No pleural effusions or pneumothorax. Lungs appear clear. Mediastinum: Mediastinal contours appear normal. Heart size is normal. IMPRESSION: No displaced rib fracture or pneumothorax. Reviewed by: Saravanan Frost MD on 12/02/2023 5:01 PM [place] Approved by: Saravanan Frost MD on 12/02/2023 5:01 PM [place] Station ID: [id number]
== END 2023-12-02 23:59 | disposition home or self-care (01) ==
LOC: DI.S 08:00
PROVIDERS: ATTEND Nurse Practitioner
DX: S30.1XXA Contusion of abdominal wall, initial encounter (principal)

== ENCOUNTER 2023-12-04 12:49 | Emergency (ER) | payer MEDICARE, OTHER ==
--- NOTE | 2023-12-04 14:39 | ED Physician Documentation ---
PD HPI MAJOR TRAUMA - Stated complaint Stated Complaint: GLF,RT SIDE PX - Chief complaint Chief Complaint: Trauma Ch/Bk - History obtained from History obtained from: Patient - Additional information Additional information: Has hx chronic arthritis pain, on hydrocodone 7.5mg qam and afternoon and 10mg in the efternoon. Fell 2 days ago and hit R side on a brick planter. Severe pain R side with bruising Seen at [facility] with neg xray. PD PAST MEDICAL HISTORY - Past Medical History Past Medical History: Yes Cardiovascular: High cholesterol Respiratory: Asthma Neuro: None Endocrine/Autoimmune: None GI: GERD, Hiatal hernia REGISTER OF WILLS: Breast cancer : None Psych: Depression Musculoskeletal: Osteoarthritis, Other Derm: None - Past Surgical History Past Surgical History: Yes General: Hiatal hernia repair Ortho: Hip replacement - Present Medications Home Medications: Ambulatory Orders Medication Instructions Recorded Confirmed Carbidopa/Levodopa 25/100 [Sinemet 1 each PO QID PRN 03/03/13 12/04/23 25 mg/100 mg] Gabapentin [Neurontin] 100 mg PO TID 03/03/13 12/04/23 HYDROcodone/ACET 10/325 [Freedom 10 1 - 2 tab PO BID PRN 03/03/13 12/04/23 mg/325 mg] Omeprazole [PriLOSEC] 20 mg PO QDAC 03/03/13 12/04/23 Ropinirole HCl 1 mg PO TID 03/03/13 12/04/23 Lovastatin 20 mg PO QPM 08/26/20 12/04/23 Venlafaxine ER [Effexor ER] 150 mg PO DAILY 08/26/20 12/04/23 amLODIPine [Norvasc] 5 mg PO DAILY 08/26/20 12/04/23 Budesonide/Formoterol Fumarate 1 inh INH BID 12/04/23 12/04/23 [Symbicort 160-4.5 Mcg Inhaler] oxyCODONE [Roxicodone] 5 mg PO Q4-6H PRN #30 tablet 12/04/23 - Allergies Allergies/Adverse Reactions: Allergies Allergy/AdvReac Type Severity Reaction Status Date / Time Penicillins Allergy Mild itchng Verified 12/04/23 12:55 - Social History Does the pt smoke?: No Smoking Status: Former smoker Does the pt drink ETOH?: No Does the pt have substance abuse?: No - Immunizations Immunizations are current?: Yes - POLST Patient has POLST: No PD ED PE NORMAL - Vitals Vital signs reviewed: Yes - General General: Alert and oriented X 3, No acute distress - Neck Neck: Supple, no meningeal sign, No bony TTP - Cardiac Cardiac: RRR, No murmur - Respiratory Respiratory: No respiratory distress, Clear bilaterally - Abdomen Abdomen: Other (v large bruise R flank and tender low ribs and less so RU!) - Extremities Extremities: Other (R small toe tender but no deformity, declines xr there.) - Neuro Neuro: Alert and oriented X 3, mirror maker 2-12 intact Eye Opening: Spontaneous Motor: Obeys Commands Verbal: Oriented GCS Score: 15 - Psych Psych: Normal mood, Normal affect Results - Vitals Vitals: Vital Signs - 24 hr 12/04/23 12/04/23 12:55 17:12 Temperature 36 C L Heart Rate 89 74 Respiratory 18 18 Rate Blood Pressure 142/64 H 152/84 H O2 Saturation 96 100 Oxygen O2 Source Room air - Labs Labs: Laboratory Tests 12/04/23 12/04/23 15:05 15:05 WBC 7.8 RBC 4.52 Hgb 12.5 Hct 41.3 MCV 91.4 MCH 27.7 MCHC 30.3 L RDW 14.2 Plt Count 249 MPV 10.4 Neut # (Auto) 5.7 Lymph # (Auto) 1.3 L Ramsey # (Auto) 0.4 Eos # (Auto) 0.3 Baso # (Auto) 0.1 Absolute Nucleated RBC 0.00 Nucleated RBC % 0.0 Sodium 139 Potassium 3.8 Chloride 102 Carbon Dioxide 31 Anion Gap 6.0 BUN 13 Creatinine 0.8 Estimated GFR (MDRD) 69 L Glucose 144 H Calcium 10.0 Total Bilirubin 0.4 AST 18 ALT 14 Alkaline Phosphatase 86 Total Protein 7.0 Albumin 4.1 Globulin 2.9 Albumin/Globulin Ratio 1.4 - Rads (name of study) CT chest A/P Relevant Findings:: Final report received (CT chest abdomen and pelvis showing 4 broken ribs with 2 is a flail. She is a small right pleural effusion and right upper lobe tree-in-bud appearance which is asymptomatic. 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 CBC and CMP were unremarkable save mild hyperglycemia.) ED course: We discussed the CT findings and the concern for flail chest. Offered admission to the hospital but her dog just ran away and her needs a lot of help. She will she wants to try going home but understands there is a low threshold for returning hospitalization given the findings. Departure - Departure Disposition: Home, Self Care Clinical Impression: Fracture of rib Qualifiers: Encounter type: initial encounter Rib fracture type: flail chest Fracture type: closed Qualified Code(s): S22.5XXA - Flail chest, initial encounter for closed fracture Condition: Good Instructions: ED Fx Rib Prescriptions: oxyCODONE [Roxicodone] 5 mg PO Q4-6H PRN #30 tablet PRN Reason: Pain Comments: As discussed, you do have multiple rib fractures, with 2 broken into areas concerning for a "flail chest." You may end up benefiting from hospitalization, but at this point you got a lot going on so I sent a prescription for a little stronger pain medication to the [facility] in [place]. And have a low suspicion to come back for reevaluation and potential admission. You should use the incentive spirometer you have at home as frequently as you can. Call your doctor to arrange a follow-up appointment, make the next available appointment. In the interim, return anytime if worse or if new symptoms develop. I am prescribing a short course of narcotic pain medication for you. These are potentially dangerous and addictive medications that should be used carefully. These medications may constipate you. Take an nfks-qiq-tkympqr stool softener (d ocusate) twice daily with plenty of water while taking these medications. If you go 24 hours without a bowel movement, take ssax-bdm-jydjhis miralax, per package instructions. Do not drink or drive while taking these medications. If you received narcotic or sedating medications while in the emergency department, do not drive for 24 hours. Store this medication in a safe, secure place and out of reach of children. It is a violation of federal law to give or sell this medication to another person or to use in a manner other than prescribed. The ED will not refill narcotic prescriptions, including prescriptions lost or stolen. To dispose of unwanted medications: 1. [facility]'s Office provides a drop box for medication in pill form only (no liquids) 8:00 am to 4:30 p.m. Saturday-Saturday in the lobby of the [facility], [address] Empty pills into ziplock bag before disposal. Call [phone] for information. 2.[employer] is a free service available to all [facility] residents. Go to [email or web address] Note that many narcotic pain relievers also contain Tylenol/acetaminophen. Please ensure that your total dose of acetaminophen from all sources does not exceed 3 g (3000 mg) per day. Forms: PCP List Discharge Date/Time: 12/04/23 17:12
[2023-12-04 15:17] LABS: BASOPHILS # (AUTO) 0.1 10^3/uL (0.0-0.1); BASOPHILS % (AUTO) 0.8 %; EOSINOPHILS # (AUTO) 0.3 10^3/uL (0.0-0.7); EOSINOPHILS % (AUTO) 3.8 %; HCT - HEMATOCRIT 41.3 % (37.0-47.0); HGB - HEMOGLOBIN 12.5 g/dL (12.0-16.0); LYMPHOCYTES # (AUTO) 1.3 10^3/uL (1.5-3.5); LYMPHOCYTES % (AUTO) 16.3 %; MEAN CORPUSCULAR HEMOGLOBIN 27.7 pg (27.0-31.0); MEAN CORPUSCULAR HGB CONC 30.3 g/dL (32.0-36.0); MEAN CORPUSCULAR VOLUME 91.4 fL (81.0-99.0); MEAN PLATELET VOLUME 10.4 fL (7.9-10.8); MONOCYTES # (AUTO) 0.4 10^3/uL (0.0-1.0); MONOCYTES % (AUTO) 5.6 %; NEUTROPHILS # (AUTO) 5.7 10^3/uL (1.5-6.6); NEUTROPHILS % (AUTO) 73.2 %; PLT - PLATELET COUNT 249 10^3/uL (130-450); RED BLOOD COUNT 4.52 10^6/uL (4.20-5.40); RED CELL DISTRIBUTION WIDTH 14.2 % (12.0-15.0); WHITE BLOOD COUNT 7.8 x10^3/uL (4.8-10.8)
[2023-12-04 15:33] LABS: ALBUMIN 4.1 g/dL (3.2-5.5); ALBUMIN/GLOBULIN RATIO 1.4 (1.0-2.2); BILIRUBIN,TOTAL 0.4 mg/dL (0.2-1.0); CREATININE 0.8 mg/dL (0.6-1.3); POTASSIUM 3.8 mmol/L (3.5-4.5)
[2023-12-04] MEDS ORDERED: iohexoL-300 100 ML VIAL ONE (15:39)
[2023-12-04] MEDS: iohexoL-300 100 ML VIAL IVP ONE (16:01)
--- NOTE | 2023-12-04 16:19 | CT Report ---
PROCEDURE: Abdomen/Pelvis W INDICATIONS: iv only, r abd trauma CONTRAST: Omni 300 100ml TECHNIQUE: After the administration of intravenous contrast, a CT scan of the abdomen and pelvis was performed. Images were recorded and evaluated at appropriate window settings. Reformats: coronal and sagittal. F or radiation dose reduction, the following was used: automated exposure control, adjustment of mA and /or kV according to patient size. COMPARISON: None. FINDINGS: Image quality: Diagnostic. Lower chest: Trace right pleural effusion with rounded atelectasis. Mild cardiomegaly. Annular calcif ication of the mitral valve. Liver: No solid mass. Gallbladder: Cholelithiasis without wall thickening. Biliary tree: No intrahepatic or extrahepatic dilation, accounting for age. Spleen: No splenomegaly. Pancreas: No pancreatic ductal dilation. Adrenals: No adrenal nodule. Kidneys and ureters: No hydronephrosis. No renal cystic lesion which requires follow up. No solid mas s. Stomach, bowel and peritoneum: No gastric or small bowel dilation. No abnormal wall thickening. No pa thologic free fluid. Prior gastric surgery. Fecal debris within the small bowel. Colonic diverticulos is without evidence of diverticulitis. Lymph nodes: No central or retroperitoneal adenopathy. Vessels: No infrarenal aortic aneurysm. Patent portal vein. PELVIS Obscured by metallic artifact. Bones: Displaced right 11th, 10th, ninth, eighth rib fractures. The 10 th and 11th rib fractures are broken in 2 locations. Trace subcutaneous gas overlying the right chest wall. Pelvic bones are obscured by metallic artifact. Heterogeneous attenuation of the left hemipelv is. Degenerative changes, predominantly of the lumbar spine. Other: No significant ventral or inguinal hernia. IMPRESSION: Displaced right 11th, 10th, ninth, eighth rib fractures. The 10th and 11th rib fractures are broken i n 2 locations. This may cause flail chest pathology. No pneumothorax. Heterogeneous attenuation of the left hemipelvis, may indicate Paget's disease. Fecal debris within the small bowel, which may indicate small intestinal bacterial overgrowth versus slow intestinal transit. Other chronic findings as above. Reviewed by: Saravanan Frost MD on 12/04/2023 3:17 PM CONSUELO Approved by: Saravanan Frost MD on 12/04/2023 3:17 PM AKDT Station ID: [id number]
--- NOTE | 2023-12-04 16:24 | CT Report ---
PROCEDURE: Chest W INDICATIONS: r chest trauma CONTRAST: Omni 300 100ml TECHNIQUE: After the administration of intravenous contrast, a CT scan of the chest was performed. Images were recorded and evaluated at appropriate window settings. Reformats: axial MIP of the chest, coronal and sagittal. For radiation dose reduction, the following was used: automated exposure control, adjustme nt of mA and/or kV according to patient size. COMPARISON: None. FINDINGS: Image quality: Diagnostic. Chest wall and lower neck: No thyroid nodule which requires sonographic follow up. No breast mass. No axillary or supraclavicular adenopathy by size. Left breast lumpectomy. Lungs and pleura: No consolidation. Small right pleural effusion with right-sided atelectasis. Centri lobular and tree-in-bud nodules in the right upper lobe and right middle lobe. Relation fibrosis in t he anterior left lung. Mediastinum: Heart size is normal. No pericardial effusion. No large vessel abnormality. No mediastin al adenopathy by size criteria. Bones: Fractured 8-11 right rib fractures. The ninth and 10th ribs are fractured in 2 locations. Upper Abdomen: Separately dictated. IMPRESSION: Fractured 8-11 right rib fractures. The ninth and 10th ribs are fractured in 2 locations. Findings ma y cause flail chest pathology. No definite pneumothorax. Small right pleural effusion with right basilar atelectasis. Centrilobular and tree-in-bud nodules in the right upper lobe and right middle lobe, possibly infecti ous or inflammatory bronchiolitis. Reviewed by: Saravanan Frost MD on 12/04/2023 3:22 PM AKDT Approved by: Saravanan Frost MD on 12/04/2023 3:22 PM AKDT Station ID: [id number]
[2023-12-04 17:16] VITALS: BP 152/84; O2SAT 100
== END 2023-12-04 17:12 | disposition home or self-care (01) ==
LOC: ED 12:49
DX: S22.5XXA Flail chest, initial encounter for closed fracture (principal); W54.1XXA Struck by dog, initial encounter; W18.39XA Other fall on same level, initial encounter; Z87.891 Personal history of nicotine dependence
CPT/HCPCS: 36415; 71260; 74177; 80053; 85025; 99284; Q9967

== ENCOUNTER 2023-12-06 04:35 | Outpatient (CLI) | payer MEDICARE, OTHER | END 2023-12-06 23:59 | disposition EMS.NT | LOC: EMS 04:35 | DX: R10.9 Unspecified abdominal pain (principal) ==

== ENCOUNTER 2023-12-07 11:28 | Outpatient (CLI) | payer MEDICARE, OTHER | END 2023-12-07 23:59 | disposition critical access hospital (66) | LOC: EMS 11:28 | DX: S22.41XD Multiple fractures of ribs, right side, subsequent encounter for fracture with routine healing (principal); W19.XXXD Unspecified fall, subsequent encounter | CPT/HCPCS: A0425; A0427 ==

== ENCOUNTER 2023-12-07 12:16 | Inpatient (IN) | payer MEDICARE, OTHER ==
--- NOTE | 2023-12-07 12:53 | ED Physician Documentation ---
History of Present Illness - Stated complaint Stated Complaint: RIB PX - Chief complaint Chief Complaint: General - History obtained from History obtained from: Patient - History of Present Illness Timing: Prior to arrival, How many weeks ago Pain level max: 5 Pain level now: 5 (Patient is a 83-year-old female presenting with past medical history of hypertension hyperlipidemia presents to the emergency department with right rib pain. Patient notes she fell on Saturday and was seen at urgent care on the hide negative x-ray at that time but came back to the emergency depa) Review of Systems Constitutional: reports: Reviewed and negative Eyes: reports: Reviewed and negative Ears: reports: Reviewed and negative Nose: reports: Reviewed and negative Throat: reports: Reviewed and negative Cardiac: reports: Reviewed and negative Respiratory: reports: Reviewed and negative GI: reports: Reviewed and negative : reports: Reviewed and negative Skin: reports: Reviewed and negative Musculoskeletal: reports: Reviewed and negative Neurologic: reports: Reviewed and negative Psychiatric: reports: Reviewed and negative Endocrine: reports: Reviewed and negative Immunocompromised: reports: Reviewed and negative PD PAST MEDICAL HISTORY - Past Medical History Past Medical History: Yes Cardiovascular: High cholesterol Respiratory: Asthma Neuro: None Endocrine/Autoimmune: None GI: GERD, Hiatal hernia 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: Breast cancer : None Psych: Depression Musculoskeletal: Osteoarthritis, Other Derm: None - Past Surgical History Past Surgical History: Yes General: Hiatal hernia repair Ortho: Hip replacement - Present Medications Home Medications: Ambulatory Orders Medication Instructions Recorded Confirmed RX: Carbidopa/Levodopa 25/100 1 each PO QID PRN 03/03/13 12/04/23 [Sinemet 25 mg/100 mg] RX: Gabapentin [Neurontin] 100 mg PO TID 03/03/13 12/04/23 RX: HYDROcodone/ACET 10/325 [Benicia 1 - 2 tab PO BID PRN 03/03/13 12/04/23 10 mg/325 mg] RX: Omeprazole [PriLOSEC] 20 mg PO QDAC 03/03/13 12/04/23 RX: Ropinirole HCl 1 mg PO TID 03/03/13 12/04/23 RX: Lovastatin 20 mg PO QPM 08/26/20 12/04/23 RX: Venlafaxine ER [Effexor ER] 150 mg PO DAILY 08/26/20 12/04/23 RX: amLODIPine [Norvasc] 5 mg PO DAILY 08/26/20 12/04/23 Budesonide/Formoterol Fumarate 1 inh INH BID 12/04/23 12/04/23 [Symbicort 160-4.5 Mcg Inhaler] RX: oxyCODONE [Roxicodone] 5 mg PO Q4-6H PRN #30 tablet 12/04/23 - Allergies Allergies/Adverse Reactions: Allergies Allergy/AdvReac Type Severity Reaction Status Date / Time Penicillins Allergy Mild itchng Verified 12/07/23 12:29 cat dander Allergy Itching Verified 12/07/23 12:29 - Social History Does the pt smoke?: No Smoking Status: Never smoker Does the pt drink ETOH?: No Does the pt have substance abuse?: No - Immunizations Immunizations are current?: Yes - POLST Patient has POLST: No PD ED PE NORMAL - Vitals Vital signs reviewed: Yes - General General: Alert and oriented X 3 - HEENT HEENT: Atraumatic - Neck Neck: Supple, no meningeal sign - Cardiac Cardiac: RRR, No murmur, No gallop, No rub, Strong equal pulses - Respiratory Respiratory: Other (Patient has persistent expiratory wheeze on auscultation of the lungs with crackles noted to right lung base. Significant tenderness on examination of right side of chest. Breath sounds noted noted bilaterally. ) - Abdomen Abdomen: Normal bowel sounds, Soft, Non tender, Non distended - Derm Derm: Other (Significant ecchymosis noted to right side of chest extending from right lateral ribs down to her right hip. No palpable hematoma noted. Significant tenderness on examination no ecchymosis extending to abdomen.) Results - Vitals Vitals: Vital Signs - 24 hr 12/07/23 12/07/23 12:22 14:29 Temperature 36.9 C Heart Rate 84 83 Respiratory 19 16 Rate Blood Pressure 129/91 H 131/89 H O2 Saturation 98 95 If not protocol 2 : Oxygen Flow, liters/minute Oxygen O2 Source Nasal cannula Oxygen Flow Rate 2 - Labs Labs: Laboratory Tests 12/07/23 12/07/23 12/07/23 13:17 13:17 13:17 WBC 8.0 RBC 4.30 Hgb 11.9 L Hct 39.1 MCV 90.9 MCH 27.7 MCHC 30.4 L RDW 13.9 Plt Count 266 MPV 9.9 Neut # (Auto) 5.9 Lymph # (Auto) 1.2 L [place] # (Auto) 0.5 Eos # (Auto) 0.3 Baso # (Auto) 0.1 Absolute Nucleated RBC 0.00 Nucleated RBC % 0.0 PT 12.1 INR 1.1 APTT 28.2 Sodium 138 Potassium 3.7 Chloride 103 Carbon Dioxide 30 Anion Gap 5.0 L BUN 14 Creatinine 0.7 Estimated GFR (MDRD) 80 L Glucose 105 H Calcium 9.2 Total Bilirubin 0.4 AST 13 ALT 11 Alkaline Phosphatase 94 Troponin I High Sens 5.5 Total Protein 6.3 L Albumin 3.9 Globulin 2.4 Albumin/Globulin Ratio 1.6 PD Medical Decision Making - ED course Complexity details: reviewed old records ED course: Patient presents to ED after being seen on 12/03 after a fall on Saturday. Patient had CT scan showing concerning findings for 6 rib fractures. Patient was discharged home after imaging despite physician requesting patient to be admitted. Today on arrival patient notably hypoxic to 88% started on 2 L nasal cannula patient is not on oxygen at home. Physical exam shows significant bruising and tenderness to right flank. Extending from right lower rib cage to right hip. No abdominal pain or bruising noted. Labs stable here in the emergency department no significant drop in hemoglobin there is no significant ELINA or electrolyte abnormality no significant leukocytosis and troponin within normal range EKG additionally shows normal sinus rhythm no signs of ST elevation or depression. CT without contrast of ribs obtained due to concern for possible pneumothorax versus worsening pleural effusion versus increased pneumonia or pulmonary contusion given recent rib fractures. CT scan shows slightly worsening pleural effusion but no large pleural effusion additionally no opacities noted left upper lobe and findings of atelectasis. This could explain patient's hypoxia discussed case with hospitalist who evaluated patient and is agreeable with admission. Additionally consulted Dr. Lopes from general surgery who will evaluate patient and review images and hospital no acute intervention at this time. Patient updated and agreeable with plan. Departure - Departure Disposition: 66 [facility] DC/Xfer Clinical Impression: Acute pain, Ribs, multiple fractures, Fracture of rib Condition: Poor Record reviewed to determine appropriate education?: Yes Instructions: ED Fx Rib Forms: PCP List
[2023-12-07] MEDS: MORPHINE 2 MG/ML CARPUJECT IVP STA (13:15)
[2023-12-07] MEDS: LIDOCAINE PATCH 5% TOP STA (13:15)
[2023-12-07 13:23] LABS: BASOPHILS # (AUTO) 0.1 10^3/uL (0.0-0.1); BASOPHILS % (AUTO) 0.6 %; EOSINOPHILS # (AUTO) 0.3 10^3/uL (0.0-0.7); HCT - HEMATOCRIT 39.1 % (37.0-47.0); HGB - HEMOGLOBIN 11.9 g/dL (12.0-16.0); LYMPHOCYTES # (AUTO) 1.2 10^3/uL (1.5-3.5); LYMPHOCYTES % (AUTO) 14.7 %; MEAN CORPUSCULAR HEMOGLOBIN 27.7 pg (27.0-31.0); MEAN CORPUSCULAR HGB CONC 30.4 g/dL (32.0-36.0); MEAN CORPUSCULAR VOLUME 90.9 fL (81.0-99.0); MEAN PLATELET VOLUME 9.9 fL (7.9-10.8); MONOCYTES # (AUTO) 0.5 10^3/uL (0.0-1.0); MONOCYTES % (AUTO) 5.9 %; NEUTROPHILS # (AUTO) 5.9 10^3/uL (1.5-6.6); NEUTROPHILS % (AUTO) 74.7 %; PLT - PLATELET COUNT 266 10^3/uL (130-450); RED CELL DISTRIBUTION WIDTH 13.9 % (12.0-15.0)
[2023-12-07 13:33] LABS: PARTIAL THROMBOPLASTIN TIME 28.2 secs (24.9-33.3)
[2023-12-07 13:36] LABS: ALBUMIN 3.9 g/dL (3.2-5.5); ALBUMIN/GLOBULIN RATIO 1.6 (1.0-2.2); BILIRUBIN,TOTAL 0.4 mg/dL (0.2-1.0); CALCIUM 9.2 mg/dL (8.5-10.3); CREATININE 0.7 mg/dL (0.6-1.3); POTASSIUM 3.7 mmol/L (3.5-4.5); TOTAL PROTEIN 6.3 g/dL (6.4-8.9)
[2023-12-07 13:37] LABS: INR 1.1 (0.8-1.2); PT - PROTHROMBIN TIME 12.1 secs (9.9-12.6)
[2023-12-07 13:43] LABS: TROPONIN I HIGH SENSITIVITY 5.5 ng/L (2.3-14.8)
--- NOTE | 2023-12-07 13:56 | CT Report ---
PROCEDURE: Chest WO INDICATIONS: rib fracture causing pneumonia vs contusion TECHNIQUE: A CT scan of the chest was performed. Intravenous contrast media was not administered. Images were re corded and evaluated at appropriate window settings. Reformats: axial MIP of the chest, coronal and s agittal. For radiation dose reduction, the following was used: automated exposure control, adjustment of mA and/or kV according to patient size. COMPARISON: 12/04/2023 FINDINGS: Image quality: Diagnostic. Chest wall and lower neck: No thyroid nodule which requires sonographic follow up. No axillary or sup raclavicular adenopathy by size. Lungs and pleura: There is a small right-sided pleural effusion seen, which is worse compared to the prior examination. Overlying consolidation is seen, which is attributed to atelectasis. No pneumothor ax is seen on either side. There is a mild degree of consolidation involving the superior medial left upper lobe. Minimal tree-i n-bud type opacity can be seen at the right lung base. Mediastinum: Heart size is normal. No pericardial effusion. There is calcification seen of the mitral valve annulus. No large vessel abnormality. No mediastinal adenopathy by size criteria. Bones: Right lateral eighth through 11th rib fractures are seen. The 10th rib is fractured in 2 locat ions. There may also be 2 fractures through the right ninth rib. Upper Abdomen: Several upper abdominal clips can be seen. Apparent layering stones can be seen within the gallbladder. The visualized portions of the upper abdominal structures are otherwise within norm al limits. IMPRESSION: Continued right-sided rib fractures. No pneumothorax. Interval worsening of a small right-sided pleural effusion, with overlying consolidative change, whic h is attributed to atelectasis. Additional findings: Apparent gallstones Upper abdominal postoperative clips Reviewed by: Freddy Jorgensen MD on 12/07/2023 12:55 PM CONSUELO Approved by: Freddy Jorgensen MD on 12/07/2023 12:55 PM CONSUELO Station ID: [id number]
[2023-12-07] MEDS: DOXYCYCLINE INJ 100 MG in SODIUM CHLORIDE 0.9% MINIBAG 100 ML IV STA (15:07)
[2023-12-07] MEDS ORDERED: ONDANSETRON ODT 4 MG TABLET TL PRN (15:27)
[2023-12-07] MEDS ORDERED: SODIUM CHLORIDE FLUSH 0.9% 10 ML SYRINGE IVP PRN (15:27)
--- NOTE | 2023-12-07 15:33 | HISTORY & PHYSICAL EXAMINATION ---
Chief Complaint - Chief Complaint Chief Complaint: Rib pain History of Present Illness - Admitted From Admitted From:: ED - History of Present Illness HPI Comment/Other: The patient is an extremely pleasant 83-year-old female who was previously totally independent with her ADLs. This past Saturday she was taking her dog out of the house to go for a walk and her dog pulled away from her while going down a ramp. She lost her balance and fell on her side and hit them on some bricks. She had significant pain. The next day she went to a local urgent care and had x-rays which were unremarkable. She came to the emergency room on December 03 with significant pain. She had a CT scan of the chest abdomen and pelvis which revealed displaced right 11th 10th ninth and eighth rib fractures. The 10th and 11th ribs were broken in 2 locations. 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 She presented back to the emergency room today due to the severity of the pain and worsening shortness of breath. Workup in the emergency room revealed a white blood cell count of 8.0, hemoglobin of 11.9, platelet level of 266. Chemistry panel revealed sodium of 138, potassium of 3.7, creatinine of 0.7 with a BUN of 14. Glucose level was 105. Liver panel was unremarkable. She had a repeat CT scan of the chest which confirmed her right-sided rib fractures. She also had evidence of developing consolidation in the left upper lobe and tree-in-bud type opacities developing at the right lung base. She also had developed a small right-sided pleural effusion with overlying consolidative changes. The emergency room physician apparently has consulted general surgery. She was referred for admission. We discussed her CODE STATUS. Also a POLST form was filled out. At this point she desires to be a full code and would want aggressive measures to include intubation and chest compressions. She would like her stepdaughter Marguerite Mckee to be her surrogate decision maker for now. 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 - Substance History Use: Uses substance without health or social issues: NONE - POLST Patient has POLST: No Meds/Allgy - Home Medications Home Medications: Ambulatory Orders Medication Instructions Recorded Confirmed Carbidopa/Levodopa 25/100 [Sinemet 1 each PO QID PRN 03/03/13 12/04/23 25 mg/100 mg] Gabapentin [Neurontin] 100 mg PO TID 03/03/13 12/04/23 HYDROcodone/ACET 10/325 [[place] 10 1 - 2 tab PO BID PRN 03/03/13 12/04/23 mg/325 mg] Omeprazole [PriLOSEC] 20 mg PO QDAC 03/03/13 12/04/23 Ropinirole HCl 1 mg PO TID 03/03/13 12/04/23 Lovastatin 20 mg PO QPM 08/26/20 12/04/23 Venlafaxine ER [Effexor ER] 150 mg PO DAILY 08/26/20 12/04/23 amLODIPine [Norvasc] 5 mg PO DAILY 08/26/20 12/04/23 Budesonide/Formoterol Fumarate 1 inh INH BID 12/04/23 12/04/23 [Symbicort 160-4.5 Mcg Inhaler] oxyCODONE [Roxicodone] 5 mg PO Q4-6H PRN #30 tablet 12/04/23 - Allergies Allergies/Adverse Reactions: Allergies Allergy/AdvReac Type Severity Reaction Status Date / Time Penicillins Allergy Mild itchng Verified 12/07/23 12:29 cat dander Allergy Itching Verified 12/07/23 12:29 Review of Systems - Respiratory Respiratory: reports: Wheezing, SOB at rest, SOB with exertion, Pleuritic pain - Musculoskeletal Musculoskeletal: reports: Other (The patient has severe pain when she takes a deep breath or tries to get up and move around.) Prior Level of Functionality: Previously totally independent with her ADLs Exam - Vital Signs Reviewed Vital Signs: Yes Vital Signs: Vital Signs x48h Temp Pulse Resp BP Pulse Ox O2 Flow Rate 12/07/23 14:29 83 16 131/89 H 95 2 12/07/23 12:22 36.9 C 84 19 129/91 H 98 - Physical Exam General Appearance: positive: Mild distress, Other (Clearly a little bit uncomfortable in the bed) ENT: positive: ENT inspection nml Neck: positive: Nml inspection Respiratory: positive: Other (Chest is tender to palpation with large ecchymosis on the right flank that extends into the midline of her back. She has severe pain when trying to take a deep breath. She has some mild wheezing) Cardiovascular: positive: Regular rate & rhythm, No murmur, No gallop. negative: Friction rub Back: positive: Other (Ecchymosis on the right chest wall and back) Skin: positive: Color nml, No rash, Warm, Dry, Other (Ecchymosis on the right chest wall) Sepsis Event Note (H) - Evaluation Current Stage of Sepsis: Ruled out Conclusion/Plan - Problem List (1) Acute hypoxic respiratory failure Conclusion/Plan: The patient desats into the low 80s when talking even on 2 L of oxygen. When she is still her oxygen saturations are stable in the low 90s on 2 L of oxygen. She has developing pneumonia and multiple broken ribs on the right which is the cause of her respiratory failure. Oxygen support as needed. Incentive spirometry. 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 She also is wheezing a bit. (2) Pneumonia Conclusion/Plan: The patient has developing pneumonia. Will place her on IV ceftriaxone and Zithromax. This will be the first day of treatment. Qualifiers: Pneumonia type: due to unspecified organism Laterality: left Lung location: lower lobe of lung Qualified Code(s): J18.9 - Pneumonia, unspecified organism (3) Pathologic rib fracture Conclusion/Plan: The patient has multiple pathologic rib fractures from a ground-level fall. 2 of her ribs have fractures in 2 places concerning for flail chest. Will place t he patient on scheduled IV Tylenol for now. She will have hydrocodone as well as IV Dilaudid available for more severe pain. (4) Asthma exacerbation Conclusion/Plan: Mild asthma exacerbation. The patient will be placed on scheduled DuoNeb treatments. Incentive spirometry. Will keep a close eye on her respiratory status in light of her hypoxia (5) RLS (restless legs syndrome) Conclusion/Plan: The patient will continue ropinirole and carbidopa/levodopa that she takes for this. (6) Hypertension Conclusion/Plan: Her blood pressure will be monitored closely. After pharmacy reconciled her medications we will start her back on her home regimen if appropriate (7) Hyperlipidemia Conclusion/Plan: Plan as above (8) Moderate major depression Conclusion/Plan: She will continue her home dose of Lexapro (9) History of breast cancer Conclusion/Plan: Quiescent (10) Uncontrolled pain Conclusion/Plan: The patient will be placed on scheduled IV Tylenol for now. She will have hydrocodone and IV Dilaudid available as needed. She will need incentive spirometry and will need to get her pain under better control. Disposition: The patient will be fully admitted to the hospital. I fully expect her hospitalization to span greater than 2 midnights at this point. The patient has developing pneumonia in the setting of multiple rib fractures and worsening hypoxia. Timing of disposition will be determined by her clinical course Time spent: 45 minutes - Lab Results Fish Bones: 12/07/23 13:17 12/07/23 13:17 Core Measures - Anticipated LOS I expect patient to be DC'd or transferred within 96 hours.: Yes - DVT/VTE - Prophylaxis VTE/DVT Device ordered at admit?: Yes
--- NOTE | 2023-12-07 15:38 | CONSULTATION NOTE ---
Surgery Consult - Home Meds/Allergies Home Medications: Patient History Medication Instructions Recorded Confirmed Gabapentin [Neurontin] 100 mg PO TID 03/03/13 12/04/23 Omeprazole [PriLOSEC] 20 mg PO QDAC 03/03/13 12/07/23 Ropinirole HCl 1 mg PO TID 03/03/13 12/07/23 Lovastatin 20 mg PO QPM 08/26/20 12/04/23 Venlafaxine ER [Effexor ER] 150 mg PO DAILY 08/26/20 12/04/23 amLODIPine [Norvasc] 5 mg PO DAILY 08/26/20 12/07/23 Budesonide/Formoterol Fumarate 1 inh INH BID 12/04/23 12/07/23 [Symbicort 160-4.5 Mcg Inhaler] Carbidopa/Levodopa 10/100 [Sinemet 1 each PO DAILY 12/07/23 12/07/23 10 mg/100 mg] HYDROcod/ACET 5/325 Prepack 4 1.5 tab PO 0800,1200 12/07/23 12/07/23 [NORCO 5/325 Prepack 4] HYDROcod/ACET 5/325 Prepack 4 2 tab PO QPM 12/07/23 12/07/23 [NORCO 5/325 Prepack 4] Allergies/Adverse Reactions: Allergies Allergy/AdvReac Type Severity Reaction Status Date / Time Penicillins Allergy Mild itchng Verified 12/07/23 12:29 cat dander Allergy Itching Verified 12/07/23 12:29 - Vital Signs Vital Signs: Last Vital Signs Temp 98.4 F 12/07/23 12:22 Pulse 83 12/07/23 14:29 Resp 16 12/07/23 14:29 BP 131/89 H 12/07/23 14:29 Pulse Ox 95 12/07/23 14:29 O2 Flow Rate 2 12/07/23 14:29 - Lab Results Result Diagrams: 12/07/23 13:17 12/07/23 13:17 - Consultation Note Consultation Note: General Surgery Consultation Note - Rib Fracture Protocol Assessment: 1) Multiple right rib fractures with right pleural effusion (small hemothorax likely) and atelectasis/consolidation of portions of the middle and lower lobes of the right lung. Unfortunately, this is exactly what we try to prevent when we are given the opportunity to manage this problem acutely because now, 5 days after the injury, she is at high risk for pneumonia. If the right pleural effusion increases, thoracentesis or US guided pleural catheter placement should be performed to prevent fibrothorax. Recommendation: 1) Lidocaine patch Right chest wall. Change q 12 hrs 2) Acetaminophen, Oxycodone 3) IV Dilaudid as needed 4) IS 5-6 x per hour 5) Supplemental oxygen as needed 6) Dangle at bedside/ambulate 4-6 x a day 7) Consider epidural catheter (consult anesthesia) if above analgesic measures fail to provide enough relief for adequate pulmonary hygiene 8) CXR (PA upright) today and tomorrow morning to monitor the status of the right pleural effusion. If the effusion increases or her SOB worsens, thoracentesis or pleural catheter is indicated 9) Avoid NSAID's 10) Consult RT for pulmonary hygiene (Flutter valve, etc) 11) PPI for GERD 12) Bowel protocol - she will get constipated on the opioids 13) Surgery will follow <><><><><> Reason for Consultation GLF with rib fractures. VIRGIE Urbina is an 83 year old female who suffered a GLF on 12/02/23. She struck her right chest on a brick plantar and developed the immediate onset of right chest pain. She was sen in the OP clinic and prescribed non-narcotic medication. A CXR was not performed. On 12/04/23, she was evaluated in the ED and found to have multiple right rib fractures and a small right pleural effusion. Admission was recommended but she refused due to important home issues. She returns now because of her right chest pain has increased and new onset of SOB. She is worried that she may be developing a pneumonia because she can hear "rattling" when she breaths Ciara was admitted to the Adult Medical Hospitalist Service and the General Surgery Service was asked to assist in her evaluation and management. Past Medical History Increased cholesterol, Breast cancer, Osteoporosis, Asthma, Hiatal hernia with GERD, Depression Past Surgical History Fundoplication, hip surgery, repair NSAID related gastric perforation [place] with while she is in hospital Current Medications - See above Allergies - See above ROS Pertinent positives Persistent right chest pain, SOB All other reviewed systems negative VS - See above PE GENERAL APPEARANCE: Normal development, normal body habitus, normal grooming PSYCHIATRIC: AAO; Comfortable although becomes slightly SOB with prolonged conversation EYES: Pupils equal, round and reactive to light, sclera anicteric EARS, NOSE, MOUTH, THROAT: Hearing normal, Oral mucous membranes moist and without lesions; NECK: No crepitus, lymphadenopathy, or thyromegaly LUNGS: Reduced inspiratory effort due to pain; Audible rhonchi; No wheezing CHEST WALL: Tenderness right postero-lateral aspect; This area is ecchymotic; No crepitus or flail chest SKIN: Anicteric; No rashes, lesions, Ulcerations Labs - See above Imaging CT Chest - fractures of right ribs 8-11 with right pleural effusion/hemothorax slightly larger compared to the 12/04/23 CT image. Ribs 9/10 may be fractures in two locations. There are air bronchograms in the posterior and inferior aspect of the pleural cavity indicating some degree of pulmonary consolidation and or atelectasis. No pneumothorax. Liver appears undamaged. All images were personally reviewed by me for this encounter. Ifeanyi Hensley, [facility] General Surgery Service
[2023-12-07] MEDS ORDERED: ACETAMINOPHEN 1,000 MG/100 ML 1,000 MG/100 ML BAG IV PRN (15:45)
[2023-12-07] MEDS: IPRATROPIUM/ALBUTEROL 3 ML NEB INH SCH (16:10)
[2023-12-07] MEDS: HYDROmorphone 0.5 MG/0.5 ML SYRINGE IVP PRN (16:53)
[2023-12-07] MEDS: rOPINIRole 1 MG TABLET PO SCH (16:53)
[2023-12-07] MEDS: SODIUM CHLORIDE FLUSH 0.9% 10 ML SYRINGE IVP SCH (16:55)
--- NOTE | 2023-12-07 18:24 | XRAY Report ---
PROCEDURE: Chest 1V INDICATIONS: Baseline to follow right pl eff TECHNIQUE: One view of the chest was acquired. COMPARISON: None. FINDINGS: Surgical changes and devices: Left clips are seen. Upper abdominal clips are seen. Lungs and pleura: Low lung volumes can be seen, causing a crowded appearance to the lung markings. T he known right-sided pleural effusion is only poorly seen on this study, with mild blunting of the ri ght costophrenic angle. Mediastinum: Mediastinal contours appear normal. Heart size is normal. Bones and chest wall: No suspicious bony lesions. Overlying soft tissues appear unremarkable. IMPRESSION: There is mild blunting of the right costophrenic angle. The known right-sided pleural effusion is not well seen. Reviewed by: Freddy Jorgensen MD on 12/07/2023 5:23 PM CON[facility] Approved by: Freddy Jorgensen MD on 12/07/2023 5:23 PM CONSUELO Station ID: [id number]
[2023-12-07] MEDS: ACETAMINOPHEN 1,000 MG/100 ML 1,000 MG/100 ML BAG IV SCH (18:29)
[2023-12-07] MEDS: BUDESONIDE 0.5 MG/2 ML NEB INH SCH (19:20)
[2023-12-07] MEDS: FORMOTEROL FUMARATE NEB 20 MCG/2 ML INH SCH (19:20)
[2023-12-07] MEDS: oxyCODONE 5 MG TABLET PO PRN (20:59)
[2023-12-07] MEDS ORDERED: rOPINIRole 1 MG TABLET PO SCH (22:00)
[2023-12-08] MEDS: PANTOPRAZOLE 40 MG TABLET PO SCH (06:05)
[2023-12-08 07:49] LABS: BASOPHILS % (AUTO) 0.7 %; EOSINOPHILS # (AUTO) 0.3 10^3/uL (0.0-0.7); EOSINOPHILS % (AUTO) 5.4 %; HCT - HEMATOCRIT 39.8 % (37.0-47.0); HGB - HEMOGLOBIN 11.9 g/dL (12.0-16.0); LYMPHOCYTES # (AUTO) 1.3 10^3/uL (1.5-3.5); LYMPHOCYTES % (AUTO) 21.1 %; MEAN CORPUSCULAR HEMOGLOBIN 27.3 pg (27.0-31.0); MEAN CORPUSCULAR HGB CONC 29.9 g/dL (32.0-36.0); MEAN CORPUSCULAR VOLUME 91.3 fL (81.0-99.0); MONOCYTES # (AUTO) 0.4 10^3/uL (0.0-1.0); MONOCYTES % (AUTO) 6.5 %; NEUTROPHILS % (AUTO) 66.1 %; PLT - PLATELET COUNT 254 10^3/uL (130-450); RED BLOOD COUNT 4.36 10^6/uL (4.20-5.40); RED CELL DISTRIBUTION WIDTH 13.9 % (12.0-15.0)
[2023-12-08 07:59] LABS: ALBUMIN 3.6 g/dL (3.2-5.5); CALCIUM 9.2 mg/dL (8.5-10.3); CREATININE 0.7 mg/dL (0.6-1.3); MAGNESIUM 1.6 mg/dL (1.7-2.3)
--- NOTE | 2023-12-08 08:03 | XRAY Report ---
PROCEDURE: Chest 1V INDICATIONS: Follow up right pleural effusion TECHNIQUE: One view of the chest was acquired. COMPARISON: Chest radiograph 12/07/2023, CT chest 12/07/2023. FINDINGS: Surgical changes and devices: Surgical clips in left axilla and upper abdomen, as before Lungs and pleura: Persistent small right pleural effusion with subjacent atelectasis. No pneumothora x. Mediastinum: Mediastinal contours appear normal. Heart size is normal. Bones and chest wall: No suspicious bony lesions. Overlying soft tissues appear unremarkable. IMPRESSION: Persistent small right pleural effusion with subjacent atelectasis. Reviewed by: Yarelis Knox MD, PhD on 12/08/2023 8:01 AM PDT Approved by: Yarelis Knox MD, PhD on 12/08/2023 8:01 AM PDT Station ID: [id number]
[2023-12-08] MEDS: VENLAFAXINE ER 75 MG CAPSULE PO SCH ×2 (08:28→09:26)
[2023-12-08] MEDS: polyethylene glycoL 3350 17 GM PACKET PO SCH (08:28)
[2023-12-08] MEDS: amLODIPine 5 MG TABLET PO SCH (08:28)
[2023-12-08] MEDS: cefTRIAXone 2 GM in SODIUM CHLORIDE 0.9% MINIBAG 100 ML IV SCH (08:28)
--- NOTE | 2023-12-08 08:59 | PROVIDER PROGRESS NOTE ---
Progress Note General Surgery Progress Note S: Ciara feels much better this morning. She still has right chest pain from her rib fractures but the pain is better controlled. She is able to reach 1,500 on IS and RT has been helping with pulmonary treatments. O: VSS, afeb; Lungs clear. No rhonchi or wheezing; Much improved inspiratory effort; Eccymosis right postero-lateral chest wall stable. No flail chest. Hgb is stable and not depressed CXR - yesterday afternoon. It is a PA standing image that is incorrectly marked with the "L" label on the patient's right. The right pulmonary sulcus is blunted but there is no visible evidence of a fluid level. CXR - this morning. It is an AP portable image that is marked correctly. There is no evidence of atelectasis or infiltrates. The right diaphragm and sulcus continues to be obscured compared to yesterday's image. A: Six days s/p multiple right rib fractures with clinical and image evidence of atelectasis/consolidation right lung - clinically improved. She clearly presented with a small hemothorax that is not visible on CXR, not enlarging, and not causing impairment of her respiratory effort. Because of it's small size and clinical insignificance, I do not recommend aspiration or pleural catheter placement at this time. Usually this small of a hemothorax will resorb over time. R: Continue multimodality pain control and pulmonary hygiene. She is anxious to go home to be with her who has dementia but I would recommend at least another day of inpatient pulmonary care to support her respiratory status and control her rib discomfort. Troy Hensley MD, FACS General Surgery Service [facility]
--- NOTE | 2023-12-08 09:01 | PHARMACY PROGRESS NOTE ---
- Best Possible Medication History Admit Date and Time: 12/07/23 1527 Processed by: Pharmacy Medication History completed: Yes Patient Interview: Completed Secondary Source(s): Pharmacy records, Insurance records As the person ultimately responsible for medication therapy, providers are able to order a medication from an existing home medication list in [facility] via the "Reconcile Routine" prior to Confirmation of that medication by applications support specialist. Such practice is discouraged except when the physician, in their clinical judgment, deems that a medical need exists for a medication without regard to previous use.
[2023-12-08] MEDS: AZITHROMYCIN INJ 500 MG in SODIUM CHLORIDE 0.9% 250 ML IV SCH (09:15)
[2023-12-08] MEDS: VENLAFAXINE 37.5 MG TABLET PO ONE (10:25)
[2023-12-08] MEDS: rOPINIRole 1 MG TABLET PO SCH ×2 (13:54→20:44)
--- NOTE | 2023-12-08 14:15 | PROVIDER PROGRESS NOTE ---
Subjective - Prog Note Date Prog Note Date: 12/08/23 Prog Note Time: 14:15 - Subjective Subjective: The patient is resting in her bed. She has been weaned off of oxygen with appropriate pain control. She continues on scheduled IV Tylenol and has required some doses of IV Dilaudid and oxycodone for breakthrough pain. Tomorrow the plan would be to stop the IV Tylenol and see if we cannot titrate her narcotics to get her comfortable enough to go home. With some pain relief her breathing is much better. She denies fever or shaking chills. She has chest wall pain especially when she tries to cough or take a deep breath but it is much improved since yesterday. She has had no heart palpitations. No nausea vomiting or diarrhea. No urinary complaints Objective - Vital Signs/Intake & Output Reviewed Vital Signs: Yes Vital Signs: Vital Signs x48h Temp Pulse Pulse Resp BP Pulse Ox 12/08/23 13:00 36.7 C 71 18 143/71 H 91 L 12/08/23 08:55 36.6 C 76 18 144/69 H 12/08/23 07:09 78 20 Intake & Output: Intake & Output 12/05/23 12/06/23 12/07/23 12/08/23 23:59 23:59 23:59 23:59 Intake Total 300 600 Output Total 0 550 Balance 300 50 - Objective General Appearance: positive: No acute distress Eyes Bilateral: positive: Normal inspection ENT: positive: ENT inspection nml Neck: positive: Nml inspection Respiratory: positive: Other (Right chest wall is tender to palpation. She has difficulty taking a deep breath. Wheezing that was present yesterday has resolved) Cardiovascular: positive: Regular rate & rhythm, No murmur, No gallop. negative: Friction rub Abdomen: positive: Non-tender, Nml bowel sounds, No distention Skin: positive: Color nml, No rash, Warm, Other (Ecchymosis on the right lateral chest wall) Extremities: positive: Non-tender, Full ROM Neurologic/Psychiatric: positive: Oriented x3, CN's nml (2-12) - Lab Results Fish Bones: 12/08/23 07:39 12/08/23 07:39 Other Labs: Lab Results x24hrs 12/08/23 12/08/23 Range/Units 07:39 07:39 WBC 6.0 (4.8-10.8) x10^3/uL RBC 4.36 (4.20-5.40) 10^6/uL Hgb 11.9 L (12.0-16.0) g/dL Hct 39.8 (37.0-47.0) % MCV 91.3 (81.0-99.0) fL MCH 27.3 (27.0-31.0) pg MCHC 29.9 L (32.0-36.0) g/dL RDW 13.9 (12.0-15.0) % Plt Count 254 (130-450) 10^3/uL MPV 10.0 (7.9-10.8) fL Neut # (Auto) 4.0 (1.5-6.6) 10^3/uL Lymph # (Auto) 1.3 L (1.5-3.5) 10^3/uL [place] # (Auto) 0.4 (0.0-1.0) 10^3/uL Eos # (Auto) 0.3 (0.0-0.7) 10^3/uL Baso # (Auto) 0.0 (0.0-0.1) 10^3/uL Absolute Nucleated RBC 0.00 x10^3/uL Nucleated RBC % 0.0 /100WBC Sodium 139 (135-145) mmol/L Potassium 4.0 (3.5-4.5) mmol/L Chloride 105 (101-111) mmol/L Carbon Dioxide 29 (21-32) mmol/L Anion Gap 5.0 L (6-13) BUN 10 (6-20) mg/dL Creatinine 0.7 (0.6-1.3) mg/dL Estimated GFR (MDRD) 80 L (>89) Glucose 121 H (74-104) mg/dL Calcium 9.2 (8.5-10.3) mg/dL Phosphorus 4.0 (2.5-5.0) mg/dL Magnesium 1.6 L (1.7-2.3) mg/dL Albumin 3.6 (3.2-5.5) g/dL ABX Reporting Has patient been on IV antibiotics over the past 48 hours?: No Sepsis Event Note (H) - Evaluation Current Stage of Sepsis: Ruled out Assessment/Plan - Problem List (1) Acute hypoxic respiratory failure Impression: With appropriate pain control and treatment of her pneumonia the patient's acute hypoxic respiratory failure has resolved. Continue to monitor her closely and oxygen support as needed (2) Pneumonia Impression: Continue IV Rocephin and Zithromax. This is day #2 of treatment Qualifiers: Pneumonia type: due to unspecified organism Laterality: left Lung location: lower lobe of lung Qualified Code(s): J18.9 - Pneumonia, unspecified organism (3) Pathologic rib fracture Impression: She has 4 rib fractures 2 of which are broken in 2 places. Her pain is much better controlled which has helped her hypoxia on scheduled IV Tylenol. Will continue that today and then tomorrow transition her to an oral regimen said that she can get comfortable to go home (4) Asthma exacerbation Impression: Continue scheduled DuoNebs for now (5) RLS (restless legs syndrome) Impression: Continue Sinemet and ropinirole (6) Hypertension Impression: Stable (7) Hyperlipidemia Impression: She will resume her home regimen at discharge (8) Moderate major depression Impression: Continue venlafaxine 225 mg daily (9) History of breast cancer Impression: Quiescent (10) Uncontrolled pain Impression: Plan as outlined above Disposition: Inpatient hospitalization remains necessary. We are continuing aggressive pain control in this patient. Will start trying to titrate her over to an oral regimen tomorrow with eyes and discharge either tomorrow afternoon or Saturday morning if she continues to do well Time spent: 35 minutes
[2023-12-08] MEDS: LIDOCAINE PATCH 5% TOP PRN (16:13)
[2023-12-09 05:46] LABS: BASOPHILS % (AUTO) 0.5 %; EOSINOPHILS # (AUTO) 0.3 10^3/uL (0.0-0.7); HCT - HEMATOCRIT 39.7 % (37.0-47.0); LYMPHOCYTES # (AUTO) 1.4 10^3/uL (1.5-3.5); LYMPHOCYTES % (AUTO) 24.2 %; MEAN CORPUSCULAR HEMOGLOBIN 27.3 pg (27.0-31.0); MEAN CORPUSCULAR HGB CONC 30.2 g/dL (32.0-36.0); MEAN CORPUSCULAR VOLUME 90.4 fL (81.0-99.0); MEAN PLATELET VOLUME 10.1 fL (7.9-10.8); MONOCYTES # (AUTO) 0.4 10^3/uL (0.0-1.0); MONOCYTES % (AUTO) 6.9 %; NEUTROPHILS # (AUTO) 3.5 10^3/uL (1.5-6.6); NEUTROPHILS % (AUTO) 62.2 %; PLT - PLATELET COUNT 268 10^3/uL (130-450); RED BLOOD COUNT 4.39 10^6/uL (4.20-5.40); RED CELL DISTRIBUTION WIDTH 14.1 % (12.0-15.0); WHITE BLOOD COUNT 5.7 x10^3/uL (4.8-10.8)
[2023-12-09 06:01] LABS: ALBUMIN 3.8 g/dL (3.2-5.5); CALCIUM 9.7 mg/dL (8.5-10.3); CREATININE 0.7 mg/dL (0.6-1.3); MAGNESIUM 1.7 mg/dL (1.7-2.3); PHOSPHORUS 4.1 mg/dL (2.5-5.0); POTASSIUM 3.9 mmol/L (3.5-4.5)
[2023-12-09] MEDS ORDERED: HYDROmorphone 2 MG TABLET PO PRN (07:52)
[2023-12-09] MEDS ORDERED: IPRATROPIUM/ALBUTEROL 3 ML NEB INH PRN (08:21)
[2023-12-09] MEDS: SENNA 8.6 MG TABLET PO SCH (08:33)
[2023-12-09] MEDS: DOCUSATE SODIUM 250 MG CAPSULE PO SCH (08:33)
[2023-12-09] MEDS: GABAPENTIN 300 MG CAPSULE PO SCH ×2 (08:33→21:49)
[2023-12-09] MEDS: VENLAFAXINE ER 75 MG CAPSULE PO SCH (08:33)
--- NOTE | 2023-12-09 12:24 | PROVIDER PROGRESS NOTE ---
Subjective - Prog Note Date Prog Note Date: 12/09/23 Prog Note Time: 12:25 - Subjective Pt reports feeling: Improved Subjective: The patient is sitting up in a chair. She has been seen by physical therapy. She is stable on room air and doing well. Her IV Tylenol has been stopped today and she has been transition to scheduled Tylenol with p.o. hydromorphone for breakthrough pain. She is hopeful that she will do well today and go home. We discussed at length the need for aggressive pain control and she has voiced understanding. She denies fever or chills. She has rather significant chest wall pain which she takes a deep breath or talks. No heart palpitations. No nausea vomiting or diarrhea. No urinary complaints Objective - Vital Signs/Intake & Output Vital Signs: Vital Signs x48h Temp Pulse Pulse Resp BP Pulse Ox 12/09/23 08:08 36.7 C 74 18 140/78 H 91 L 12/09/23 06:55 84 20 12/09/23 06:05 36.9 C 70 17 109/78 93 Intake & Output: Intake & Output 12/06/23 12/07/23 12/08/23 12/09/23 23:59 23:59 23:59 23:59 Intake Total 300 1850 1340 Output Total 0 950 300 Balance 410 635 8399 - Lab Results Fish Bones: 12/09/23 05:29 12/09/23 05:29 Other Labs: Lab Results x24hrs 12/09/23 12/09/23 Range/Units 05:29 05:29 WBC 5.7 (4.8-10.8) x10^3/uL RBC 4.39 (4.20-5.40) 10^6/uL Hgb 12.0 (12.0-16.0) g/dL Hct 39.7 (37.0-47.0) % MCV 90.4 (81.0-99.0) fL MCH 27.3 (27.0-31.0) pg MCHC 30.2 L (32.0-36.0) g/dL RDW 14.1 (12.0-15.0) % Plt Count 268 (130-450) 10^3/uL MPV 10.1 (7.9-10.8) fL Neut # (Auto) 3.5 (1.5-6.6) 10^3/uL Lymph # (Auto) 1.4 L (1.5-3.5) 10^3/uL [place] # (Auto) 0.4 (0.0-1.0) 10^3/uL Eos # (Auto) 0.3 (0.0-0.7) 10^3/uL Baso # (Auto) 0.0 (0.0-0.1) 10^3/uL Absolute Nucleated RBC 0.00 x10^3/uL Nucleated RBC % 0.0 /100WBC Sodium 141 (135-145) mmol/L Potassium 3.9 (3.5-4.5) mmol/L Chloride 106 (101-111) mmol/L Carbon Dioxide 30 (21-32) mmol/L Anion Gap 5.0 L (6-13) BUN 10 (6-20) mg/dL Creatinine 0.7 (0.6-1.3) mg/dL Estimated GFR (MDRD) 80 L (>89) Glucose 107 H (74-104) mg/dL Calcium 9.7 (8.5-10.3) mg/dL Phosphorus 4.1 (2.5-5.0) mg/dL Magnesium 1.7 (1.7-2.3) mg/dL Albumin 3.8 (3.2-5.5) g/dL Sepsis Event Note (H) - Evaluation Current Stage of Sepsis: Ruled out Assessment/Plan - Problem List (1) Acute hypoxic respiratory failure Impression: The patient is now stable on room air. Her respiratory failure was due to multiple rib fractures. Continue aggressive pain control (2) Pneumonia Impression: Continue IV azithromycin as well as IV Rocephin. This is day #3 of treatment Qualifiers: Pneumonia type: due to unspecified organism Laterality: left Lung location: lower lobe of lung Qualified Code(s): J18.9 - Pneumonia, unspecified organism (3) Pathologic rib fracture Impression: The patient has multiple rib fractures from a ground-level fall. Continue aggressive pain control with scheduled p.o. Tylenol and hydromorphone p.o. for breakthrough pain. (4) Asthma exacerbation Impression: Resolved. She has been changed to as needed breathing treatments (5) RLS (restless legs syndrome) Impression: Continue Sinemet and ropinirole (6) Hypertension Impression: Stable (7) Hyperlipidemia Impression: Continue atorvastatin (8) Moderate major depression Impression: Continue venlafaxine 225 mg daily (9) History of breast cancer Impression: Quiescent (10) Uncontrolled pain Impression: Continue scheduled Tylenol with p.o. hydromorphone for breakthrough pain. Disposition: Overall the patient is much improved. We need to make sure she is stable on an oral regimen of pain medications. If she does well overnight she will be discharged tomorrow morning. Time spetnt: 35 minutes
[2023-12-09] MEDS: ACETAMINOPHEN 500 MG TABLET PO SCH (13:47)
--- NOTE | 2023-12-09 15:31 | PROVIDER PROGRESS NOTE ---
Subjective - General Admit Date: 12/07/23 - Other Other Information/Narrative: Pain controlled with PO meds today. Worried that some home meds have not been restarted. Struggling with restless legs. Using IS and flutter valve, feels like she is breathing without difficulty. Objective - Patient Data Vital Signs: Vital Signs x48h Temp Pulse Pulse Pulse Pulse Resp BP 12/09/23 13:52 36.6 C 85 18 145/71 H 12/09/23 11:29 90 104 H 84 12/09/23 11:27 90 104 H 84 12/09/23 08:08 36.7 C 74 18 140/78 H BP BP BP Pulse Ox Pulse Ox 12/09/23 13:52 93 12/09/23 11:29 148/88 H 133/89 H 145/71 H 12/09/23 11:27 148/88 H 133/89 H 145/71 H 93 12/09/23 08:08 91 L Weight: Weight 12/07/23 12/08/23 12/09/23 23:59 23:59 23:59 Weight (kg) 72.5 kg Intake & Output: Intake and Output Totals x24h 12/07/23 12/08/23 12/09/23 23:59 23:59 23:59 Intake Total 300 1850 1580 Output Total 0 950 300 Balance 925 640 2502 - Lab Results Lab Results: 12/09/23 05:29 12/09/23 05:29 Other Lab Results: Lab Results x24hrs 12/09/23 12/09/23 Range/Units 05:29 05:29 WBC 5.7 (4.8-10.8) x10^3/uL RBC 4.39 (4.20-5.40) 10^6/uL Hgb 12.0 (12.0-16.0) g/dL Hct 39.7 (37.0-47.0) % MCV 90.4 (81.0-99.0) fL MCH 27.3 (27.0-31.0) pg MCHC 30.2 L (32.0-36.0) g/dL RDW 14.1 (12.0-15.0) % Plt Count 268 (130-450) 10^3/uL MPV 10.1 (7.9-10.8) fL Neut # (Auto) 3.5 (1.5-6.6) 10^3/uL Lymph # (Auto) 1.4 L (1.5-3.5) 10^3/uL [place] # (Auto) 0.4 (0.0-1.0) 10^3/uL Eos # (Auto) 0.3 (0.0-0.7) 10^3/uL Baso # (Auto) 0.0 (0.0-0.1) 10^3/uL Absolute Nucleated RBC 0.00 x10^3/uL Nucleated RBC % 0.0 /100WBC Sodium 141 (135-145) mmol/L Potassium 3.9 (3.5-4.5) mmol/L Chloride 106 (101-111) mmol/L Carbon Dioxide 30 (21-32) mmol/L Anion Gap 5.0 L (6-13) BUN 10 (6-20) mg/dL Creatinine 0.7 (0.6-1.3) mg/dL Estimated GFR (MDRD) 80 L (>89) Glucose 107 H (74-104) mg/dL Calcium 9.7 (8.5-10.3) mg/dL Phosphorus 4.1 (2.5-5.0) mg/dL Magnesium 1.7 (1.7-2.3) mg/dL Albumin 3.8 (3.2-5.5) g/dL - Current Medications Current Medications: Current Medications Generic Name Dose Route Start Last Admin Trade Name Tristinq PRN Reason Stop Dose Admin Acetaminophen 1,000 mg 12/09/23 12:00 12/09/23 13:47 Acetaminophen 500 Mg Tablet PO 1,000 mg Q6HR IBIS Administration Amlodipine Besylate 5 mg 12/08/23 09:00 12/09/23 08:33 Amlodipine 5 Mg Tablet PO 5 mg DAILY IBIS Administration Budesonide 0.5 mg 12/07/23 19:00 12/09/23 06:54 Budesonide 0.5 Mg/2 Ml Neb INH 0.5 mg RTBID IBIS Administration Docusate Sodium 250 - 500 mg 12/09/23 09:00 12/09/23 10:45 Docusate Sodium 250 Mg Capsule PO Not Given DAILY [facility] Formoterol Fumarate 20 mcg 12/07/23 19:00 12/09/23 06:54 Formoterol Fumarate Neb 20 Mcg/2 Ml INH 20 mcg RTBID IBIS Administration Gabapentin 300 mg 12/09/23 08:00 12/09/23 08:33 Gabapentin 300 Mg Capsule PO 300 mg 0800,1700 IBIS Administration Ceftriaxone Sodium 2 gm/ 100 mls @ 200 mls/hr 12/08/23 09:00 12/09/23 10:46 Sodium Chloride IV Infused DAILY IBIS Infusion Azithromycin 500 mg/ Sodium 250 mls @ 250 mls/hr 12/08/23 09:00 12/09/23 12:13 Chloride IV Infused DAILY IBIS Infusion Lidocaine 1 patch 12/07/23 16:23 12/08/23 16:13 Lidocaine Patch 5% TOP 1 patch DAILY PRN Administration Moderate Pain (Level 4-6) Pantoprazole Sodium 40 mg 12/08/23 07:00 12/09/23 05:28 Pantoprazole 40 Mg Tablet PO 40 mg QDAC IBIS Administration Polyethylene Glycol 17 gm 12/08/23 09:00 12/09/23 10:46 Polyethylene Glycol 3350 17 Gm Packet PO Not Given DAILY [facility]IS Ropinirole HCl 1 mg 12/08/23 14:00 12/09/23 14:06 Ropinirole 1 Mg Tablet PO 1 mg 1400 IBIS Administration Ropinirole HCl 2 mg 12/08/23 21:00 12/08/23 20:44 Ropinirole 1 Mg Tablet PO 2 mg QPM IBIS Administration Senna 8.6 - 17.2 mg 12/09/23 09:00 12/09/23 10:46 Senna 8.6 Mg Tablet PO Not Given DAILY IBIS Sodium Chloride 10 ml 12/07/23 17:00 12/09/23 08:34 Sodium Chloride Flush 0.9% 10 Ml Syringe IVP 10 ml 0100,0900,1700 IBIS Administration Venlafaxine HCl 225 mg 12/09/23 09:00 12/09/23 08:33 Venlafaxine Er 75 Mg Capsule PO 225 mg DAILY IBIS Administration - Physical Exam Comments/Other: GEN: No acute distress, alert and oriented CV: RRR PULM: non labored, on RA ABD: soft, non tender, no rebound or guarding EXT: no clubbing, cyanosis, chronic L UE lymphedema noted Impression/Plan - Problem List Problem List: 83 y/o F admitted two days ago, after ground level fall on 12/01 at which time she sustained multiple R rib fractures. 1. R rib fractures, multiple - imaging markedly improved - patient participating in excellent pulmonary toilet, breathing well on RA - small hemothorax on CT, no visible on CXR, clinically markedly improved. No need for aspiration/pleural catheter placement at this time, expect it will improve spontaneously over time - continue multimodal pain regimen (avoid NSAIDs due to h/o PUD) - ok to discharge from surgery perspective Patient is primary pricer for her with dementia and would like to go home as soon as it is safe. Surgery will continue to follow while inpatient.
[2023-12-09] MEDS: ATORVASTATIN 10 MG TABLET PO SCH (21:49)
[2023-12-10 05:30] LABS: BASOPHILS # (AUTO) 0.1 10^3/uL (0.0-0.1); BASOPHILS % (AUTO) 0.7 %; EOSINOPHILS # (AUTO) 0.4 10^3/uL (0.0-0.7); HCT - HEMATOCRIT 40.6 % (37.0-47.0); HGB - HEMOGLOBIN 12.3 g/dL (12.0-16.0); LYMPHOCYTES # (AUTO) 1.3 10^3/uL (1.5-3.5); LYMPHOCYTES % (AUTO) 16.5 %; MEAN CORPUSCULAR HEMOGLOBIN 27.6 pg (27.0-31.0); MEAN CORPUSCULAR HGB CONC 30.3 g/dL (32.0-36.0); MEAN CORPUSCULAR VOLUME 91.2 fL (81.0-99.0); MEAN PLATELET VOLUME 10.2 fL (7.9-10.8); MONOCYTES # (AUTO) 0.6 10^3/uL (0.0-1.0); MONOCYTES % (AUTO) 7.7 %; NEUTROPHILS # (AUTO) 5.6 10^3/uL (1.5-6.6); NEUTROPHILS % (AUTO) 69.9 %; PLT - PLATELET COUNT 275 10^3/uL (130-450); RED BLOOD COUNT 4.45 10^6/uL (4.20-5.40); RED CELL DISTRIBUTION WIDTH 13.9 % (12.0-15.0); WHITE BLOOD COUNT 8.1 x10^3/uL (4.8-10.8)
[2023-12-10 05:45] LABS: ALBUMIN 3.8 g/dL (3.2-5.5); CALCIUM 9.6 mg/dL (8.5-10.3); CREATININE 0.7 mg/dL (0.6-1.3); MAGNESIUM 1.7 mg/dL (1.7-2.3); PHOSPHORUS 4.1 mg/dL (2.5-5.0); POTASSIUM 3.8 mmol/L (3.5-4.5)
--- NOTE | 2023-12-10 06:48 | PROVIDER PROGRESS NOTE ---
Subjective - General Admit Date: 12/07/23 - Other Other Information/Narrative: Pain controlled with PO meds. Tolerating diet. No n/v. Using IS, flutter valve and feels breathing is doing well. Objective - Patient Data Vital Signs: Vital Signs x48h Temp Pulse Resp BP Pulse Ox 12/10/23 04:48 36.5 C 84 18 124/75 93 Intake & Output: Intake and Output Totals x24h 12/08/23 12/09/23 12/10/23 23:59 23:59 23:59 Intake Total 1850 1902 Output Total 950 300 Balance 900 1602 - Lab Results Lab Results: 12/10/23 05:15 12/10/23 05:15 Other Lab Results: Lab Results x24hrs 12/10/23 12/10/23 Range/Units 05:15 05:15 WBC 8.1 (4.8-10.8) x10^3/uL RBC 4.45 (4.20-5.40) 10^6/uL Hgb 12.3 (12.0-16.0) g/dL Hct 40.6 (37.0-47.0) % MCV 91.2 (81.0-99.0) fL MCH 27.6 (27.0-31.0) pg MCHC 30.3 L (32.0-36.0) g/dL RDW 13.9 (12.0-15.0) % Plt Count 275 (130-450) 10^3/uL MPV 10.2 (7.9-10.8) fL Neut # (Auto) 5.6 (1.5-6.6) 10^3/uL Lymph # (Auto) 1.3 L (1.5-3.5) 10^3/uL [place] # (Auto) 0.6 (0.0-1.0) 10^3/uL Eos # (Auto) 0.4 (0.0-0.7) 10^3/uL Baso # (Auto) 0.1 (0.0-0.1) 10^3/uL Absolute Nucleated RBC 0.00 x10^3/uL Nucleated RBC % 0.0 /100WBC Sodium 140 (135-145) mmol/L Potassium 3.8 (3.5-4.5) mmol/L Chloride 105 (101-111) mmol/L Carbon Dioxide 29 (21-32) mmol/L Anion Gap 6.0 (6-13) BUN 12 (6-20) mg/dL Creatinine 0.7 (0.6-1.3) mg/dL Estimated GFR (MDRD) 80 L (>89) Glucose 111 H (74-104) mg/dL Calcium 9.6 (8.5-10.3) mg/dL Phosphorus 4.1 (2.5-5.0) mg/dL Magnesium 1.7 (1.7-2.3) mg/dL Albumin 3.8 (3.2-5.5) g/dL - Current Medications Current Medications: Current Medications Generic Name Dose Route Start Last Admin Trade Name Tristinq PRN Reason Stop Dose Admin Acetaminophen 1,000 mg 12/09/23 12:00 12/10/23 00:51 Acetaminophen 500 Mg Tablet PO 1,000 mg Q6HR IBIS Administration Amlodipine Besylate 5 mg 12/08/23 09:00 12/09/23 08:33 Amlodipine 5 Mg Tablet PO 5 mg DAILY IBIS Administration Atorvastatin Calcium 10 mg 12/09/23 21:00 12/09/23 21:49 Atorvastatin 10 Mg Tablet PO 10 mg QPM IBIS Administration Budesonide 0.5 mg 12/07/23 19:00 12/09/23 19:00 Budesonide 0.5 Mg/2 Ml Neb INH 0.5 mg RTBID IBIS Administration Docusate Sodium 250 - 500 mg 12/09/23 09:00 12/09/23 10:45 Docusate Sodium 250 Mg Capsule PO Not Given DAILY [facility] Formoterol Fumarate 20 mcg 12/07/23 19:00 12/09/23 19:00 Formoterol Fumarate Neb 20 Mcg/2 Ml INH 20 mcg RTBID IBIS Administration Gabapentin 300 mg 12/09/23 08:00 12/09/23 16:47 Gabapentin 300 Mg Capsule PO 300 mg 0800,1700 IBIS Administration Gabapentin 600 mg 12/09/23 21:00 12/09/23 21:49 Gabapentin 300 Mg Capsule PO 600 mg HS IBIS Administration Ceftriaxone Sodium 2 gm/ 100 mls @ 200 mls/hr 12/08/23 09:00 12/09/23 10:46 Sodium Chloride IV Infused DAILY IBIS Infusion Azithromycin 500 mg/ Sodium 250 mls @ 250 mls/hr 12/08/23 09:00 12/09/23 12:13 Chloride IV Infused DAILY IBIS Infusion Lidocaine 1 patch 12/07/23 16:23 12/08/23 16:13 Lidocaine Patch 5% TOP 1 patch DAILY PRN Administration Moderate Pain (Level 4-6) Pantoprazole Sodium 40 mg 12/08/23 07:00 12/09/23 05:28 Pantoprazole 40 Mg Tablet PO 40 mg QDAC IBIS Administration Polyethylene Glycol 17 gm 12/08/23 09:00 12/09/23 10:46 Polyethylene Glycol 3350 17 Gm Packet PO Not Given DAILY [facility] Ropinirole HCl 1 mg 12/08/23 14:00 12/09/23 14:06 Ropinirole 1 Mg Tablet PO 1 mg 1400 IBIS Administration Ropinirole HCl 2 mg 12/08/23 21:00 12/09/23 21:49 Ropinirole 1 Mg Tablet PO 2 mg QPM IBIS Administration Senna 8.6 - 17.2 mg 12/09/23 09:00 12/09/23 10:46 Senna 8.6 Mg Tablet PO Not Given DAILY IBIS Sodium Chloride 10 ml 12/07/23 17:00 12/10/23 00:52 Sodium Chloride Flush 0.9% 10 Ml Syringe IVP 10 ml 0100,0900,1700 IBIS Administration Venlafaxine HCl 225 mg 12/09/23 09:00 12/09/23 08:33 Venlafaxine Er 75 Mg Capsule PO 225 mg DAILY IBIS Administration - Physical Exam Comments/Other: Gen: alert and oriented CV: RRR Pulm: non labored, on RA Chest: right lateral/posterior chest wall bruising with ttp over areas of rib fx Ext: L UE lymphedema (chronic) Impression/Plan - Problem List Problem List: 83 y/o F admitted two days ago, after ground level fall on 12/01 at which time she sustained multiple R rib fractures. 1. R rib fractures, multiple - imaging markedly improved since presentation - patient participating in excellent pulmonary toilet, breathing well on RA - small hemothorax on CT, not visible on CXR, clinically markedly improved. No need for aspiration/pleural catheter placement at this time, expect it will improve/resolve spontaneously over time. 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 Surgery will continue to follow while inpatient.
[2023-12-10] MEDS ORDERED: SODIUM CHLORIDE 0.9% MINIBAG 100 ML IV ONE ×3 (08:15→08:27)
[2023-12-10 12:22] VITALS: BP 115/78; O2SAT 96
--- NOTE | 2023-12-10 12:28 | Discharge Plan ---
Discharge Plan Problem Reviewed?: Yes Disposition: Home, Self Care Condition: Fair Prescriptions: Acetaminophen [Tylenol] 1,000 mg PO Q6HR #300 tab Docusate Sodium 100Mg Capsule [Colace 100Mg Capsule] 100 mg PO BID #60 Lidocaine [Dermacinrx Lidocan] 1 each TP DAILY #30 patch HYDROmorphone [Dilaudid] 2 mg PO Q4H PRN #30 tab PRN Reason: Pain 5-7 levoFLOXacin [Levaquin] 500 mg PO ONCE 3 Days #6 tablet polyethylene glycoL 3350 [Miralax] 17 gm PO DAILY #30 packet Diet: Regular Activity Restrictions: Activity as Tolerated Shower Restrictions: No Driving Restrictions: No Instruction Topics: ED Fx Rib Plan of Treatment: Patient you were admitted with multiple rib fractures. Due to the pain it was difficult for you to breathing you initially were requiring oxygen. We aggressively treated your pain which is under much better control and your breathing has improved and you have been off of oxygen for greater than 24 hours. You should follow-up with your primary care physician. You did have some signs of early pneumonia and you should complete a course of antibiotic therapy. You should be taking Tylenol [id number] every 6 hours on a scheduled basis. He will have by mouth hydromorphone available for breakthrough pain and you should take it if you are having significant pain. It is important that your pain stay well-controlled so that you can take deep breaths. I would continue incentive spirometry as well as your flutter valve. You should follow-up with your primary care physician within 1 week. Assessment: 1. Acute hypoxic respiratory failure This is secondary to her rib fractures with significant difficulty in breathing. Continue aggressive pain control. She has been weaned off of oxygen at this point and is doing well. Continue incentive spirometry and flutter valve 2. Pneumonia She will be transition to p.o. Levaquin at discharge and she should complete course of treatment 3. Multiple pathologic rib fractures The patient had a ground-level fall at home. Continue aggressive pain control. She should be on scheduled Tylenol every 6 hours at least until she follows up with her primary care provider. We are calling in 5 days of p.o. hydromorphone for the patient. She likely will need this refilled as pain control is critical so that she does not develop further hypoxia 4. Asthma exacerbation Resolved. She will resume her home bronchodilators 5. Restless leg syndrome Continue Sinemet and ropinirole 6. Hypertension Continue home regimen 7. Hyperlipidemia She will resume her home regimen 8. Moderate major depression Continue venlafaxine 225 mg daily 9. History of breast cancer Quiescent 10. Uncontrolled pain She should continue scheduled Tylenol with p.o. hydromorphone for breakthrough pain No Smoking: If you smoke, Please STOP! Call for help.
--- NOTE | 2023-12-10 13:10 | DISCHARGE SUMMARY ---
Discharge Summary Admit Date: 12/07/23 Discharge Date: 12/10/23 Discharging Provider: Sierra Hickman PA-C Code Status: Attempt Resuscitation Condition at Discharge: Fair Discharge Disposition: 01 Home, Self Care - DIAGNOSES Admission Diagnoses: 1. Acute hypoxic respiratory failure This is secondary to her rib fractures with significant difficulty in breathing. Continue aggressive pain control. She has been weaned off of oxygen at this point and is doing well. Continue incentive spirometry and flutter valve 2. Pneumonia She will be transition to p.o. Levaquin at discharge and she should complete course of treatment 3. Multiple pathologic rib fractures The patient had a ground-level fall at home. Continue aggressive pain control. She should be on scheduled Tylenol every 6 hours at least until she follows up with her primary care provider. We are calling in 5 days of p.o. hydromorphone for the patient. She likely will need this refilled as pain control is critical so that she does not develop further hypoxia 4. Asthma exacerbation Resolved. She will resume her home bronchodilators 5. Restless leg syndrome Continue Sinemet and ropinirole 6. Hypertension Continue home regimen 7. Hyperlipidemia She will resume her home regimen 8. Moderate major depression Continue venlafaxine 225 mg daily 9. History of breast cancer Quiescent 10. Uncontrolled pain She should continue scheduled Tylenol with p.o. hydromorphone for breakthrough pain - HPI History of Present Illness: From the admission HP: The patient is an extremely pleasant 83-year-old female who was previously totally independent with her ADLs. This past Saturday she was taking her dog out of the house to go for a walk and her dog pulled away from her while going down a ramp. She lost her balance and fell on her side and hit them on some bricks. She had significant pain. The next day she went to a local urgent care and had x-rays which were unremarkable. She came to the emergency room on December 03 with significant pain. She had a CT scan of the chest abdomen and pelvis which revealed displaced right 11th 10th ninth and eighth rib fractures. The 10th and 11th ribs were broken in 2 locations. 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 She presented back to the emergency room today due to the severity of the pain and worsening shortness of breath. Workup in the emergency room revealed a white blood cell count of 8.0, hemoglobin of 11.9, platelet level of 266. Chemistry panel revealed sodium of 138, potassium of 3.7, creatinine of 0.7 with a BUN of 14. Glucose level was 105. Liver panel was unremarkable. She had a repeat CT scan of the chest which confirmed her right-sided rib fractures. She also had evidence of developing consolidation in the left upper lobe and tree-in-bud type opacities developing at the right lung base. She also had developed a small right-sided pleural effusion with overlying consolidative changes. The emergency room physician apparently has consulted general surgery. She was referred for admission. We discussed her CODE STATUS. Also a POLST form was filled out. At this point she desires to be a full code and would want aggressive measures to include intubation and chest compressions. She would like her stepdaughter Marguerite Mckee to be her surrogate decision maker for now. - HOSPITAL COURSE Hospital Course: The patient was admitted to the hospital. Initially requiring respiratory suppo rt. General surgery was consulted who followed along during this hospitalization. She was initially started on scheduled IV Tylenol with oxycodone and IV Dilaudid for breakthrough pain. Prior to discharge she was changed over to a schedule of 1000 mg of Tylenol every 6 hours by mouth on a scheduled basis as well as 2 mg of hydromorphone for breakthrough pain. The patient has remained stable and off of oxygen on this regimen. She has been working diligently with her incentive spirometer and flutter valve. Patient did have evidence of a possible pneumonia at the time of admission and she will complete a course of antibiotic therapy in the outpatient setting. It is imperative that the patient have extremely good pain control going forward in light of the multiple rib fractures 2 of which are broken in 2 places. I have written pain medication for the patient but this will likely need to be refilled by her primary care physician going forward. At this point maximum hospital benefit has been reached. The patient will be discharged today in stable condition. - ALLERGIES Allergies/Adverse Reactions: Allergies Allergy/AdvReac Type Severity Reaction Status Date / Time Penicillins Allergy Mild itchng Verified 12/07/23 12:29 cat dander Allergy Itching Verified 12/07/23 12:29 - MEDICATIONS Home Medications: Ambulatory Orders Medication Instructions Recorded Confirmed Omeprazole [PriLOSEC] 20 mg PO QDAC 03/03/13 12/07/23 Lovastatin 20 mg PO QPM 08/26/20 12/08/23 Venlafaxine ER [Effexor ER] 225 mg PO DAILY 08/26/20 12/08/23 amLODIPine [Norvasc] 5 mg PO DAILY 08/26/20 12/07/23 Budesonide/Formoterol Fumarate 1 inh INH BID 12/04/23 12/07/23 [Symbicort 160-4.5 Mcg Inhaler] Carbidopa/Levodopa 10/100 [Sinemet 1 each PO DAILY PRN 12/07/23 12/07/23 10 mg/100 mg] Albuterol Sulf [Ventolin Hfa 2 puffs INH BID PRN 12/08/23 12/08/23 Inhaler] Gabapentin [Neurontin] 300 mg PO 0800,1700 12/08/23 12/08/23 Gabapentin [Neurontin] 600 mg PO HS 12/08/23 12/08/23 rOPINIRole [Requip] 2 mg PO QPM 12/08/23 12/08/23 Acetaminophen [Tylenol] 1,000 mg PO Q6HR #300 tab 12/10/23 Docusate Sodium 100Mg Capsule 100 mg PO BID #60 12/10/23 [Colace 100Mg Capsule] HYDROmorphone [Dilaudid] 2 mg PO Q4H PRN #30 tab 12/10/23 Lidocaine [Dermacinrx Lidocan] 1 each TP DAILY #30 patch 12/10/23 levoFLOXacin [Levaquin] 500 mg PO ONCE 3 Days #6 tablet 12/10/23 polyethylene glycoL 3350 [Miralax] 17 gm PO DAILY #30 packet 12/10/23 - PHYSICAL EXAM AT DISCHARGE General Appearance: positive: No acute distress Eyes Bilateral: positive: Normal inspection ENT: positive: ENT inspection nml Neck: positive: Nml inspection Respiratory: positive: Other (It still is quite painful to take a deep breath. No respiratory distress. Lung sounds are normal.) Cardiovascular: positive: Regular rate & rhythm, No murmur, No gallop. negative: Friction rub Abdomen: positive: Non-tender, No organomegaly, Nml bowel sounds Skin: positive: Color nml, No rash, Warm, Dry Extremities: positive: Non-tender, Full ROM Neurologic/Psychiatric: positive: Oriented x3, CN's nml (2-12) - LABS Result Diagrams: 12/10/23 05:15 12/10/23 05:15 - SEPSIS Current Stage of Sepsis: Ruled out - FOLLOW UP Follow Up: The patient should follow-up with her primary care physician in 1 week. - TIME SPENT Time Spent in Discharge (Minutes): 45
[2023-12-10] MEDS: CARBIDOPA/LEVODOPA 25 MG/100 MG TABLET PO PRN (13:28)
== END 2023-12-10 13:45 | disposition home or self-care (01) | DRG 542 ==
LOC: EDUNIT# → ED 12:16 → MS2 15:27
PROVIDERS: ADMIT Physician Assistant; ATTEND Physician Assistant
DX: S22.41XA Multiple fractures of ribs, right side, initial encounter for closed fracture (principal); W19.XXXA Unspecified fall, initial encounter; M80.0AXA Age-related osteoporosis with current pathological fracture, other site, initial encounter for fracture; J18.9 Pneumonia, unspecified organism; J96.01 Acute respiratory failure with hypoxia; J45.901 Unspecified asthma with (acute) exacerbation; F32.1 Major depressive disorder, single episode, moderate; J90 Pleural effusion, not elsewhere classified; J98.11 Atelectasis; J94.2 Hemothorax; G25.81 Restless legs syndrome; I10 Essential (primary) hypertension; K21.9 Gastro-esophageal reflux disease without esophagitis; E78.00 Pure hypercholesterolemia, unspecified; I89.0 Lymphedema, not elsewhere classified; Z79.51 Long term (current) use of inhaled steroids; Z79.899 Other long term (current) drug therapy; Z85.3 Personal history of malignant neoplasm of breast; Z91.81 History of falling
CPT/HCPCS: 36415; 71045; 71250; 80053; 80069; 83735; 84484; 85025; 85610; 85730; 93005; 94640; 96365; 96375; 97162; 97165; 99285; A9270; J0131; J1170; J7626

== ENCOUNTER 2023-12-15 12:09 | Outpatient (CLI) | payer MEDICARE, OTHER | END 2023-12-15 23:59 | disposition critical access hospital (66) | LOC: EMS 12:09 | DX: R06.02 Shortness of breath (principal); R09.89 Other specified symptoms and signs involving the circulatory and respiratory systems; S22.41XD Multiple fractures of ribs, right side, subsequent encounter for fracture with routine healing; W19.XXXD Unspecified fall, subsequent encounter | CPT/HCPCS: A0425; A0429 ==

== ENCOUNTER 2023-12-15 12:53 | Emergency (ER) | payer MEDICARE, OTHER ==
[2023-12-15 13:49] LABS: BASOPHILS # (AUTO) 0.1 10^3/uL (0.0-0.1); BASOPHILS % (AUTO) 0.8 %; EOSINOPHILS # (AUTO) 0.5 10^3/uL (0.0-0.7); EOSINOPHILS % (AUTO) 6.2 %; HCT - HEMATOCRIT 36.8 % (37.0-47.0); HGB - HEMOGLOBIN 11.4 g/dL (12.0-16.0); LYMPHOCYTES # (AUTO) 1.5 10^3/uL (1.5-3.5); LYMPHOCYTES % (AUTO) 20.6 %; MEAN CORPUSCULAR HEMOGLOBIN 27.9 pg (27.0-31.0); MEAN CORPUSCULAR VOLUME 90.2 fL (81.0-99.0); MEAN PLATELET VOLUME 9.8 fL (7.9-10.8); MONOCYTES # (AUTO) 0.4 10^3/uL (0.0-1.0); MONOCYTES % (AUTO) 5.7 %; NEUTROPHILS # (AUTO) 4.9 10^3/uL (1.5-6.6); NEUTROPHILS % (AUTO) 66.4 %; PLT - PLATELET COUNT 306 10^3/uL (130-450); RED BLOOD COUNT 4.08 10^6/uL (4.20-5.40); RED CELL DISTRIBUTION WIDTH 13.8 % (12.0-15.0); WHITE BLOOD COUNT 7.4 x10^3/uL (4.8-10.8)
--- NOTE | 2023-12-15 13:59 | ED Physician Documentation ---
PD HPI DYSPNEA - Stated complaint Stated Complaint: SOA/ BROKEN RIBS - Chief complaint Chief Complaint: Resp - History obtained from History obtained from: Patient - Additional information Additional information: This is a 83-year-old female who presents with increasing shortness of breath. The patient was recently admitted to the hospital after a fall in which she developed a number of right rib fractures and then subsequently developed pneumonia. She was seen in the ER on 2 occasions and then ultimately admitted to the hospital for pain control and treatment of her pneumonia. She did requir e oxygen for a period of time but with good pain control the patient was weaned from oxygen and discharged home on 12/09. She states she has been taking antibiotics as prescribed but there were apparently some difficulties obtaining the pain medication and so she has not been able to obtain the Dilaudid that was ordered and that she has had increasing pain recently which has caused difficulty taking deep breaths and today she was feeling increasing shortness of breath therefore came into the ER with the encouragement of her family. She has pain on the right ribs, no other areas of chest pain. She has not noted any fever, no increased cough, no abdominal pain nausea vomiting or diarrhea, no urinary symptoms, she has not had any lower extremity edema or increase in weight. According to the EMS report, the patient dipped into the low 80s with activity and she was placed on 2 L nasal cannula. She is feeling substantially better after being put on the oxygen. Review of Systems Constitutional: reports: Reviewed and negative Eyes: reports: Reviewed and negative Ears: reports: Reviewed and negative Nose: reports: Reviewed and negative Throat: reports: Reviewed and negative Cardiac: reports: Chest pain / pressure. denies: Palpitations, Pedal edema, Calf pain Respiratory: reports: Dyspnea. denies: Cough, Hemoptysis, Wheezing GI: reports: Reviewed and negative : reports: Reviewed and negative Skin: reports: Reviewed and negative Musculoskeletal: reports: Reviewed and negative Neurologic: reports: Reviewed and negative PD PAST MEDICAL HISTORY - Past Medical History Past Medical History: Yes Cardiovascular: High cholesterol Respiratory: Asthma Neuro: None Endocrine/Autoimmune: None GI: GERD, Hiatal hernia TRAFFIC EXPERT: Breast cancer : None HEENT: None Psych: Depression Musculoskeletal: Osteoarthritis, Other Derm: None - Past Surgical History Past Surgical History: Yes General: Hiatal hernia repair Ortho: Hip replacement - Present Medications Home Medications: Ambulatory Orders Medication Instructions Recorded Confirmed Omeprazole [PriLOSEC] 20 mg PO QDAC 03/03/13 12/15/23 Lovastatin 20 mg PO QPM 08/26/20 12/15/23 Venlafaxine ER [Effexor ER] 225 mg PO DAILY 08/26/20 12/15/23 amLODIPine [Norvasc] 5 mg PO DAILY 08/26/20 12/15/23 Budesonide/Formoterol Fumarate 1 inh INH BID 12/04/23 12/15/23 [Symbicort 160-4.5 Mcg Inhaler] Carbidopa/Levodopa 10/100 [Sinemet 1 each PO DAILY PRN 12/07/23 12/15/23 10 mg/100 mg] Albuterol Sulf [Ventolin Hfa 2 puffs INH BID PRN 12/08/23 12/15/23 Inhaler] Gabapentin [Neurontin] 300 mg PO BID 12/08/23 12/15/23 Gabapentin [Neurontin] 600 mg PO HS 12/08/23 12/15/23 rOPINIRole [Requip] 2 mg PO QPM 12/08/23 12/15/23 Acetaminophen [Tylenol] 1,000 mg PO Q6HR #300 tab 12/10/23 12/15/23 Docusate Sodium 100Mg Capsule 100 mg PO BID #60 12/10/23 12/15/23 [Colace 100Mg Capsule] HYDROmorphone [Dilaudid] 2 mg PO Q4H PRN #30 tab 12/10/23 Lidocaine [Dermacinrx Lidocan] 1 each TP DAILY #30 patch 12/10/23 12/15/23 polyethylene glycoL 3350 [Miralax] 17 gm PO DAILY #30 packet 12/10/23 12/15/23 Clindamycin [Cleocin] 150 mg PO BID 12/15/23 12/15/23 HYDROcod/ACET 5/325 Prepack 4 1 tab ORAL ONCE 12/15/23 12/15/23 [NORCO 5/325 Prepack 4] HYDROcodone/ACET 10/325 [Endicott 10 1 tablet PO Q6H PRN #10 tablet 12/15/23 mg/325 mg] Ipratropium/Albuterol [Duoneb] 3 ml INH Q6H #100 ml 12/15/23 - Allergies Allergies/Adverse Reactions: Allergies Allergy/AdvReac Type Severity Reaction Status Date / Time Penicillins Allergy Mild itchng Verified 12/15/23 13:03 cat dander Allergy Itching Verified 12/15/23 13:03 - Social History Does the pt smoke?: No Smoking Status: Former smoker Does the pt drink ETOH?: Yes ETOH Use: Wine Does the pt have substance abuse?: No - Immunizations Immunizations are current?: Yes - POLST Patient has POLST: No PD ED PE NORMAL - Vitals Vital signs reviewed: Yes - General General: Alert and oriented X 3, No acute distress, Well developed/nourished - HEENT HEENT: Atraumatic, Moist mucous membranes - Neck Neck: Supple, no meningeal sign, No JVD - Cardiac Cardiac: RRR, No murmur, No gallop, No rub - Respiratory Respiratory: Other (Bilateral rhonchi and expiratory wheezes, no crackles. Nonlabored but grimaces due to pain with deep breaths. Right rib ttp) - Abdomen Abdomen: Normal bowel sounds, Soft, Non tender, Non distended - Derm Derm: Normal color, Warm and dry Results - Vitals Vitals: Vital Signs - 24 hr 12/15/23 12/15/23 12/15/23 13:03 13:08 14:29 Temperature 36.8 C Heart Rate 88 81 79 Respiratory 20 18 16 Rate Blood Pressure 144/68 H O2 Saturation 88 L 96 If not protocol 2 2 : Oxygen Flow, liters/minute 12/15/23 15:07 Temperature Heart Rate 88 Respiratory 18 Rate Blood Pressure 128/70 O2 Saturation 97 If not protocol : Oxygen Flow, liters/minute Oxygen O2 Source Room air Oxygen Flow Rate 2 - Labs Labs: Laboratory Tests 12/15/23 12/15/23 12/15/23 13:44 13:44 13:44 WBC 7.4 RBC 4.08 L Hgb 11.4 L Hct 36.8 L MCV 90.2 MCH 27.9 MCHC 31.0 L RDW 13.8 Plt Count 306 MPV 9.8 Neut # (Auto) 4.9 Lymph # (Auto) 1.5 [place] # (Auto) 0.4 Eos # (Auto) 0.5 Baso # (Auto) 0.1 Absolute Nucleated RBC 0.00 Nucleated RBC % 0.0 Sodium 140 Potassium 3.8 Chloride 102 Carbon Dioxide 33 H Anion Gap 5.0 L BUN 13 Creatinine 0.7 Estimated GFR (MDRD) 80 L Glucose 89 Calcium 9.5 Total Bilirubin 0.3 AST 15 ALT 10 Alkaline Phosphatase 93 B-Natriuretic Peptide 109 H Total Protein 6.5 Albumin 3.9 Globulin 2.6 Albumin/Globulin Ratio 1.5 Lipase 24 - Rads (name of study) No standard instances Relevant Findings:: Final report received PD Medical Decision Making - ED course Complexity details: reviewed old records, reviewed results, re-evaluated patient, considered differential, d/w patient ED course: 83-year-old female presents with shortness of breath and right rib pain. She was admitted for same recently after a fall resulted in rib fractures. Here she is well-appearing on initial exam, afebrile nontoxic and in no acute distress. She is comfortable on 2 L nasal cannula but having difficulty taking deep breaths due to discomfort. I suspected his pain was limiting the patient's deep breathing and therefore she was given up 4 mg of IM morphine which led to substantial improvement patient was able to take deeper breaths and was weaned off the oxygen. She is saturating 96 to 98% on room air with no distress. I did obtain a chest x-ray to ensure pneumonia was improving and this is a stable, her labs today occluding CBC and CMP are also stable. As pain is in the right ribs and reproducible I have low suspicion for other cause of her pain or dyspnea including ACS, pneumothorax, PE, and and there is no sign of new pneumonia on x-ray. She is still on antibiotics and it was advised to complete the course. She was not able to fill the Dilaudid that was prescribed for her previously likely because she is on chronic hydrocodone therefore I have advised that she can increase her hydrocodone to 4 times a day as needed for the next several days until pain improves and then drop back to her regular 2-3 times daily.She was advised to follow-up with her primary doctor for ongoing pain suzie mendosa and we reviewed return precautions in detail. Patient was given an incentive spirometer and discussed deep breathing exercises. I also did prescribe a DuoNeb for the patient as she has a nebulizer machine at home and she has some underlying emphysema. Departure - Departure Disposition: 01 Home, Self Care Clinical Impression: Ribs, multiple fractures Qualifiers: Encounter type: subsequent encounter Fracture type: closed Laterality: right Fracture healing: with routine healing Qualified Code(s): S22.41XD - Multiple fractures of ribs, right side, subsequent encounter for fracture with routine healing Condition: Good Instructions: ED Fx Rib Prescriptions: Ipratropium/Albuterol [Duoneb] 3 ml INH Q6H #100 ml HYDROcodone/ACET 10/325 [Endicott 10 mg/325 mg] 1 tablet PO Q6H PRN #10 tablet PRN Reason: Pain >8 Comments: Ciara, your workup today is stable. When we got your pain better controlled, your Oxygen level normalized. Your chest x-ray today is stable and your labs are stable. I have written for a few more tablets of the hydrocodone so that you can take it up to 3-4 times a day for the next several days, then go back down to your regular dosing schedule. Please work on taking deep breaths. Set a reminder every hour and take 10 extra deep breaths. Use the incentive spirometer as well. Please follow-up with your primary doctor for ongoing pain management. I am prescribing a short course of narcotic pain medication for you. These are potentially dangerous and addictive medications that should be used carefully. These medications may constipate you. Take an awup-qej-edlpsyg stool softener (docusate) twice daily with plenty of water while taking these medications. If you go 24 hours without a bowel movement, take [id number] miralax, per package instructions. Do not drink or drive while taking these medications. If you received narcotic or sedating medications while in the emergency department, do not drive for 24 hours. Store this medication in a safe, secure place and out of reach of children. It is a violation of federal law to give or sell this medication to another person or to use in a manner other than prescribed. The ED will not refill narcotic prescriptions, including prescriptions lost or stolen. To dispose of unwanted medications: 1. [facility] provides a drop box for medication in pill form only (no liquids) 8:00 am to 4:30 p.m. Saturday-Saturday in the lobby of the [facility], [address] [place] [address]. Empty pills into ziplock bag before disposal. Call [phone] for information. 2.[employer] is a free service available to all [facility] residents. Go to [email or web address] Note that many narcotic pain relievers also contain Tylenol/acetaminophen. Please ensure that your total dose of acetaminophen from all sources does not exceed 3 g (3000 mg) per day. Forms: PCP List
[2023-12-15 14:06] LABS: ALBUMIN 3.9 g/dL (3.2-5.5); ALBUMIN/GLOBULIN RATIO 1.5 (1.0-2.2); BILIRUBIN,TOTAL 0.3 mg/dL (0.2-1.0); CALCIUM 9.5 mg/dL (8.5-10.3); CREATININE 0.7 mg/dL (0.6-1.3); POTASSIUM 3.8 mmol/L (3.5-4.5); TOTAL PROTEIN 6.5 g/dL (6.4-8.9)
[2023-12-15] MEDS: MORPHINE 2 MG/ML CARPUJECT IM STA (14:06)
[2023-12-15] MEDS: IPRATROPIUM/ALBUTEROL 3 ML NEB INH STA (14:13)
--- NOTE | 2023-12-15 14:22 | XRAY Report ---
PROCEDURE: Chest 2V INDICATIONS: cough/SOA TECHNIQUE: 2 views of the chest were obtained. COMPARISON: 12/08/2023 FINDINGS: Surgical changes and devices: None. Lungs and pleura: Blunting the right costophrenic angle. Left lung and pleural space clear. Surgical clips in left axilla Mediastinum: Mediastinal contours appear normal. Heart size is normal. Bones and chest wall: No suspicious bony lesions. Overlying soft tissues appear unremarkable. IMPRESSION: Small right pleural effusion, similar to the prior Reviewed by: Delroy Funez MD on 12/15/2023 1:20 PM AKDT Approved by: Delroy Funez MD on 12/15/2023 1:20 PM AKDT Station ID: [id number]
[2023-12-15] MEDS: KETOROLAC 60 MG/2 ML VIAL IM STA (15:31)
[2023-12-15 15:49] VITALS: BP 135/80; O2SAT 94
== END 2023-12-15 15:38 | disposition home or self-care (01) ==
LOC: ED 12:53
DX: S22.41XD Multiple fractures of ribs, right side, subsequent encounter for fracture with routine healing (principal); W19.XXXD Unspecified fall, subsequent encounter; E78.00 Pure hypercholesterolemia, unspecified; Z79.899 Other long term (current) drug therapy; Z79.51 Long term (current) use of inhaled steroids; Z87.891 Personal history of nicotine dependence
CPT/HCPCS: 36415; 80053; 83690; 83880; 85025; 94640; 96372; 99283; 99284

== ENCOUNTER 2024-01-23 10:41 | Outpatient (CLI) | payer MEDICARE, OTHER ==
--- NOTE | 2024-01-26 16:29 | DEXA Report ---
PROCEDURE: Dexa Spine and/or Hip INDICATIONS: OSTEOPOROSIS. Bilateral hip replacements TECHNIQUE: Dual energy x-ray absorptiometry (DEXA) was performed in the regions detailed below. COMPARISON: None. FINDINGS: Lumbar Spine: Bone Mineral Density 0.855 g/cm/cm,T score -2.7. Osteoporosis Left Forearm: Bone Mineral Density 0.456 g/cm/cm, T score -3.6. Osteoporosis (T score greater or equal to -1.0: NORMAL) (T score from -1.1 to -2.4: OSTEOPENIA) (T score less than or equal to -2.5 to: OSTEOPOROSIS) IMPRESSION: Osteoporosis. Bilateral hip replacements Patients with diagnosis of osteoporosis or osteopenia should have regular bone mineral density assess ment. For those eligible for Medicare, routine testing is allowed once every 2 years. Testing frequ ency can be increased for patients who have rapidly progressing disease or for those who are receivin g medical therapy to restore bone mass. Reviewed by: Delroy Funez MD on 01/26/2024 3:27 PM CONSUELO Approved by: Delroy Funez MD on 01/26/2024 3:27 PM CONSUELO Station ID: [id number]
== END 2024-01-23 10:42 | disposition home or self-care (01) ==
LOC: DI 10:41
PROVIDERS: ATTEND Registered Nurse
DX: M81.0 Age-related osteoporosis without current pathological fracture (principal); Z96.643 Presence of artificial hip joint, bilateral